=== PATIENT | male | born 1995 | race Caucasian/White ===

== ENCOUNTER 2020-08-10 06:04 | Observation (INO) | payer BC, OTHER ==
[2020-08-10] MEDS ORDERED: ONDANSETRON 4 MG/2 ML VIAL ONE ×3 (06:46→10:11)
[2020-08-10] MEDS ORDERED: NA CHLORIDE 0.9% 1,000 ML ONE (06:46)
[2020-08-10 07:00] LABS: Absolute Lymphocytes (CBC) 0.6 K/uL (0.7-4.9); Basophils % 0.4 % (0-1.3); Hematocrit 45.5 % (39.6-49.0); Lymphocytes % 4.7 % (15.3-44.8); MPV 9.1 fL (7.6-11.3); RBC Red Blood Cell Count 5.12 M/uL (4.33-5.43)
[2020-08-10 07:12] LABS: ALT/SGPT 21 U/L (12-78); AST/SGOT 12 U/L (15-37); Albumin 4.7 g/dL (3.4-5.0); Alkaline Phosphatase 80 U/L (45-117); BUN Blood Urea Nitrogen 11 mg/dL (7-18); Bicarbonate 25 mmol/L (21-32); Bilirubin Direct 0.2 mg/dL (0-0.2); Bilirubin Total 0.9 mg/dL (0.2-1.0); Glucose Level 108 mg/dL (74-106); Lipase 28 U/L (73-393); Potassium 3.9 mmol/L (3.5-5.1); Protein, Total 8.3 g/dL (6.4-8.2); Sodium Level 141 mmol/L (136-145)
--- NOTE | 2020-08-10 08:00 | RAD REPORT ---
EXAM DESCRIPTION: CT - Abdomen Pelvis W Contrast - 08/10/2020 7:41 am CLINICAL HISTORY: Abdominal pain COMPARISON: none. TECHNIQUE: Computed axial tomography of the abdomen pelvis was obtained. 100 cc Isovue-300 was admin istered intravenously. Oral contrast was not requested which limits evaluation of bowel and appendix. All CT scans are performed using dose optimization technique as appropriate and may include automated exposure control or mA/KV adjustment according to patient size. FINDINGS: The liver, spleen, pancreas, adrenal and kidneys appear unremarkable. There is no evidence of diverticulitis. The appendix is borderline enlarged. The appendix is retrocecal No adjacent stranding. Portions of th e appendix contains air. No ascites. No abscess IMPRESSION: Borderline enlargement of the appendix. This probably is a normal finding for the patien t. However, an early appendicitis can also result in this appearance and should be correlated clinica lly.
[2020-08-10 08:22] LABS: Blood Morphology Comment NOT SEEN (NOT SEEN); Platelet Estimate ADEQ
--- NOTE | 2020-08-10 08:53 | ER ---
Nurse's Notes [facility] Name: Shola White Age: 25 yrs Sex: Male : 1995 Arrival Date: 08/10/2020 Time: 06:07 Bed 20 Private MD: Diagnosis: Acute appendicitis Presentation: 08/10 06:26 Chief complaint: Patient states: he has really bad car sickness and started vomiting bb last night approx 1800 when driving from to [place] and has been vomiting ever since, now is having some mild abdominal pain on both sides from the vomiting. Coronavirus screen: At this time, the client does not indicate any symptoms associated with coronavirus-19. Ebola Screen: No symptoms or risks identified at this time. Initial Sepsis Screen: Does the patient meet any 2 criteria? No. Patient's initial sepsis screen is negative. Does the patient have a suspected source of infection? No. Patient's initial sepsis screen is negative. Risk Assessment: Do you want to hurt yourself or someone else? Patient reports no desire to harm self or others. Onset of symptoms was August 09, 2020. 06:26 Method Of Arrival: Ambulatory bb 06:26 Acuity: TEQUILA 3 bb Triage Assessment: 06:28 General: Appears in no apparent distress. slender, Behavior is calm, cooperative. Pain: bb Complains of pain in bilateral flank areas Pain currently is 10 out of 10 on a pain scale. Neuro: Level of Consciousness is awake, alert, obeys commands, Oriented to person, place, time, situation. Cardiovascular: No deficits noted. Respiratory: Respiratory effort is even, unlabored, Respiratory pattern is regular. GI: Abdomen is flat, non-distended, Bowel sounds present X 4 quads. Abd is soft X 4 quads Reports vomiting. Derm: Skin is pink, warm \T\ dry. Musculoskeletal: Circulation, motion, and sensation intact. Historical: - Allergies: : No Known Allergies; bb - Home Meds: : None [Active]; bb - PMHx: : None; bb - PSHx: : None; bb - Immunization history:: Adult Immunizations up to date, Flu vaccine is not up to date. - Social history:: Smoking status: Reported history of juuling and/or vaping. Patient uses street drugs, marijuana, Patient/guardian denies using alcohol. Screenin:30 Abuse screen: Denies threats or abuse. Nutritional screening: No deficits noted. bb Tuberculosis screening: No symptoms or risk factors identified. Fall Risk None identified. Assessment: 06:30 Reassessment: No changes from previously documented assessment. see triage assessment. bb 07:35 General: Appears in no apparent distress. comfortable, well groomed, Behavior is calm, zb cooperative, appropriate for age. Neuro: No deficits noted. Level of Consciousness is awake, alert, obeys commands, Oriented to person, place, time, situation. Cardiovascular: No deficits noted. Capillary refill < 3 seconds in bilateral fingers. Respiratory: No deficits noted. Airway is patent Trachea midline Respiratory effort is even, unlabored, Respiratory pattern is regular. GI: Reports lower abdominal pain. : No deficits noted. No signs and/or symptoms were reported regarding the genitourinary system. EENT: No signs and/or symptoms were reported regarding the EENT system. Derm: Skin is intact, is healthy with good turgor, Skin is pink, warm \T\ dry. Musculoskeletal: No deficits noted. No signs and/or symptoms reported regarding the musculoskeletal system. Circulation, motion, and sensation intact. 07:38 Reassessment: Pt taken to CT. zb 08:18 Reassessment: Patient appears in no apparent distress at this time. Patient and/or ph family updated on plan of care and expected duration. Pain level reassessed. Patient is alert, oriented x 3, equal unlabored respirations, skin warm/dry/pink. 09:10 Reassessment: Patient appears in no apparent distress at this time. Patient and/or zb family updated on plan of care and expected duration. Pain level reassessed. Patient is alert, oriented x 3, equal unlabored respirations, skin warm/dry/pink. c/o of mild headache. lights dimmed for comfort. girlfriend at bedside. 09:58 Reassessment: Pt taken to OR, report given to nurse at bedside. ph Vital Signs: 06:26 BP 128 / 72; Pulse 87; Resp 16 S; Temp 99.4(O); Pulse Ox 98% on R/A; Weight 49.9 kg bb (R); Height 5 ft. 5 in. (165.10 cm) (R); Pain 10/10; 08:18 BP 123 / 69; Pulse 89; Resp 18; Pulse Ox 100% on R/A; ph 09:08 BP 116 / 74; Pulse 85; Resp 16; Pulse Ox 100% on R/A; Pain 6/10; zb 09:58 BP 117 / 76; Pulse 87; Resp 18; Temp 98.7; Pulse Ox 99% on R/A; ph 06:26 Body Mass Index 18.30 (49.90 kg, 165.10 cm) ED Course: 06:07 Patient arrived in ED. cl3 06:21 Bill Luna MD is Attending Physician. tw4 06:28 Triage completed. bb 06:28 Arm band placed on Patient placed in an exam room, on a stretcher, on pulse oximetry. bb Family accompanied patient. 06:30 Patient has correct armband on for positive identification. Placed in gown. Bed in low bb position. Call light in reach. Side rails up X 1. Adult w/ patient. Pulse ox on. NIBP on. Warm blanket given. 06:40 Initial lab(s) drawn, by al, sent to lab. Inserted saline lock: 20 gauge in right bb antecubital area, using aseptic technique. Blood collected. 07:00 Donna Herrera, RN is Primary Nurse. ph 07:40 CT completed. Patient tolerated procedure well. Patient moved to CT via wheelchair. sw Patient moved back from CT. 07:42 CT Abd/Pelvis - IV Contrast Only In Process Unspecified. EDMS 08:50 Attending Physician role handed off by Bill Luna MD rn 08:50 Werner Mccoy MD is Attending Physician. rn 08:52 Michael Carlin MD is Hospitalizing Provider. rn 09:57 No provider procedures requiring assistance completed. Patient admitted, IV remains in ph place. Administered Medications: 06:47 Drug: NS 0.9% 1000 ml Route: IV; Rate: 1 bolus; Site: right antecubital; bb 08:30 Follow up: Response: No adverse reaction; IV Status: Completed infusion; IV Intake: ph 1000ml 06:47 Drug: Zofran (Ondansetron) 4 mg Route: IVP; Site: right antecubital; bb 07:15 Follow up: Response: No adverse reaction; Nausea is decreased ph 09:00 Drug: Zofran (Ondansetron) 4 mg {Note: RASS 0.} Route: IVP; Site: right antecubital; zb 09:30 Follow up: Response: No adverse reaction; Nausea is decreased ph 09:06 Drug: morphine 4 mg {Note: rass- 0.} Route: IVP; Site: right antecubital; zb 09:30 Follow up: Response: No adverse reaction; Pain is decreased; RASS: Alert and Calm (0) ph 09:55 Drug: Mefoxin 1 grams {Note: administered IVP.} Route: IVPB; Infused Over: 30 mins; ph Site: right antecubital; 09:57 Follow up: Response: No adverse reaction; IV Status: Infusion continued upon admission ph 09:56 Drug: Flagyl 500 mg Volume: 100 ml; Route: IVPB; Rate: 200 ml/hr; Infused Over: 30 ph mins; Site: right antecubital; 09:57 Follow up: Response: No adverse reaction; IV Status: Infusion continued upon admission ph Intake: 08:30 IV: 1000ml; Total: 1000ml. ph Outcome: 08:52 Decision to Hospitalize by Provider. rn 09:57 Admitted to OR accompanied by tech, family with patient, via wheelchair, with chart. ph 09:57 Condition: stable 09:57 Instructed on the need for admit. 09:59 Patient left the ED. ph Signatures: Dispatcher [employer] Cora Olivares RN RN bb Nieto, Roman, MD MD rn Hall, Patricia, RN RN ph Warren, Shannon sw Wadley, Terrence, MD MD tw4 Lewis, Charde cl3 Naz Figueroa RN RN zb Corrections: (The following items were deleted from the chart) 09:55 09:55 Mefoxin 1 grams IVPB in right antecubital over 30 mins ph ph
--- NOTE | 2020-08-10 08:53 | EDPHYS ---
Physician Documentation [facility] Name: Shola White Age: 25 yrs Sex: Male : 1995 Arrival Date: 08/10/2020 Time: 06:07 Bed 20 Private MD: ED Physician Werner Mccoy HPI: 08/10 06:36 This 25 yrs old Male presents to ER via Ambulatory with complaints of tw4 Vomiting, Abdominal Pain. 06:36 The patient presents to the emergency department with nausea, vomiting. Onset: The tw4 symptoms/episode began/occurred yesterday. Possible causes: unknown. The symptoms are aggravated by nothing. The symptoms are alleviated by nothing. Associated signs and symptoms: The patient has no apparent associated signs or symptoms. Severity of symptoms: At their worst the symptoms were moderate in the emergency department the symptoms are unchanged. The patient has not experienced similar symptoms in the past. Historical: - Allergies: 06:28 No Known Allergies; bb - Home Meds: 06:28 None [Active]; bb - PMHx: 06:28 None; bb - PSHx: 06:28 None; bb - Immunization history:: Adult Immunizations up to date, Flu vaccine is not up to date. - Social history:: Smoking status: Reported history of juuling and/or vaping. Patient uses street drugs, marijuana, Patient/guardian denies using alcohol. ROS: 06:36 Constitutional: Negative for fever, chills, and weight loss, Eyes: Negative for injury, tw4 pain, redness, and discharge, Cardiovascular: Negative for chest pain, palpitations, and edema, Respiratory: Negative for shortness of breath, cough, wheezing, and pleuritic chest pain, Back: Negative for injury and pain. 06:36 MS/Extremity: Negative for injury and deformity, Skin: Negative for injury, rash, and discoloration. 06:36 Abdomen/GI: Positive for abdominal pain, nausea and vomiting, nausea, vomiting, and diarrhea, nausea, vomiting, Negative for diarrhea, constipation, abdominal cramps, abdominal distension, anorexia, dysphagia, hematemesis, black/tarry stool, rectal pain, rectal bleeding, bowel incontinence. Exam: 06:36 Constitutional: This is a well developed, well nourished patient who is awake, alert, tw4 and in no acute distress. Head/Face: Normocephalic, atraumatic. Chest/axilla: Normal chest wall appearance and motion. Nontender with no deformity. No lesions are appreciated. Cardiovascular: Regular rate and rhythm with a normal S1 and S2. No gallops, murmurs, or rubs. Normal PMI, no JVD. No pulse deficits. Respiratory: Lungs have equal breath sounds bilaterally, clear to auscultation and percussion. No rales, rhonchi or wheezes noted. No increased work of breathing, no retractions or nasal flaring. Abdomen/GI: Soft, non-tender, with normal bowel sounds. No distension or tympany. No guarding or rebound. No evidence of tenderness throughout. Back: No spinal tenderness. No costovertebral tenderness. Full range of motion. MS/ Extremity: Pulses equal, no cyanosis. Neurovascular intact. Full, normal range of motion. Neuro: Awake and alert, GCS 15, oriented to person, place, time, and situation. Cranial nerves II-XII grossly intact. Motor strength 5/5 in all extremities. Sensory grossly intact. Cerebellar exam normal. Normal gait. Vital Signs: 06:26 BP 128 / 72; Pulse 87; Resp 16 S; Temp 99.4(O); Pulse Ox 98% on R/A; Weight 49.9 kg bb (R); Height 5 ft. 5 in. (165.10 cm) (R); Pain 10/10; 08:18 BP 123 / 69; Pulse 89; Resp 18; Pulse Ox 100% on R/A; ph 09:08 BP 116 / 74; Pulse 85; Resp 16; Pulse Ox 100% on R/A; Pain 6/10; zb 09:58 BP 117 / 76; Pulse 87; Resp 18; Temp 98.7; Pulse Ox 99% on R/A; ph 06:26 Body Mass Index 18.30 (49.90 kg, 165.10 cm) bb MDM: 06:36 Patient medically screened. tw4 08:50 Differential diagnosis: Nonspecific abd pain, appendicitis, viral gastroenteritis, rn gastroenteritis, cyclical vomiting syndrome. Data reviewed: vital signs, nurses notes, lab test result(s), radiologic studies, CT scan, and as a result, I will admit patient. Counseling: I had a detailed discussion with the patient and/or guardian regarding: the historical points, exam findings, and any diagnostic results supporting the discharge/admit diagnosis, lab results, radiology results, the need for further work-up and treatment in the hospital. Admission orders: after a detailed discussion of the patient's condition and case, the admit orders are written by me. ED course: Pt with elevated WBC, ct shows dilated appendix, unsure if acute appendicitis or normal variant, but focal tenderness RLQ, chills, and low grade temp, will admit to Dr. Carlin for possible early appendicitis.. 09:32 ED course: Consulted Dr. Carlin, will come and eval patient in ER. . rn 08/10 06:28 Order name: Basic Metabolic Panel; Complete Time: 07:20 tw4 08/10 06:28 Order name: CBC with Diff; Complete Time: 08:48 tw4 08/10 06:28 Order name: Hepatic Function; Complete Time: 07:20 tw4 08/10 06:28 Order name: Lipase; Complete Time: 07:20 tw4 08/10 08:23 Order name: Manual Differential; Complete Time: 08:48 EDMS 08/10 06:28 Order name: IV Saline Lock; Complete Time: 06:47 tw4 08/10 07:20 Order name: CT Abd/Pelvis - IV Contrast Only; Complete Time: 08:02 rn 08/10 06:28 Order name: Labs collected and sent; Complete Time: 06:47 tw4 08/10 09:45 Order name: NPO; Complete Time: 09:52 rn Administered Medications: 06:47 Drug: NS 0.9% 1000 ml Route: IV; Rate: 1 bolus; Site: right antecubital; bb 08:30 Follow up: Response: No adverse reaction; IV Status: Completed infusion; IV Intake: ph 1000ml 06:47 Drug: Zofran (Ondansetron) 4 mg Route: IVP; Site: right antecubital; bb 07:15 Follow up: Response: No adverse reaction; Nausea is decreased ph 09:00 Drug: Zofran (Ondansetron) 4 mg {Note: RASS 0.} Route: IVP; Site: right antecubital; zb 09:30 Follow up: Response: No adverse reaction; Nausea is decreased ph 09:06 Drug: morphine 4 mg {Note: rass- 0.} Route: IVP; Site: right antecubital; zb 09:30 Follow up: Response: No adverse reaction; Pain is decreased; RASS: Alert and Calm (0) ph 09:55 Drug: Mefoxin 1 grams {Note: administered IVP.} Route: IVPB; Infused Over: 30 mins; ph Site: right antecubital; 09:57 Follow up: Response: No adverse reaction; IV Status: Infusion continued upon admission ph 09:56 Drug: Flagyl 500 mg Volume: 100 ml; Route: IVPB; Rate: 200 ml/hr; Infused Over: 30 ph mins; Site: right antecubital; 09:57 Follow up: Response: No adverse reaction; IV Status: Infusion continued upon admission ph Disposition: 08/10/20 08:52 Hospitalization ordered by Michael Carlin for Observation. Preliminary diagnosis is Acute appendicitis. - Bed requested for Telemetry/MedSurg (observation). - Status is Observation. ph - Condition is Stable. - Problem is new. - Symptoms have improved. Signatures: Dispatcher [employer] EDRI Cora Rosales RN RN bb Nieto, Roman, MD MD rn Hall, Patricia, RN RN ph Wadley, Terrence, MD MD tw4 Naz Figueroa RN RN zb Corrections: (The following items were deleted from the chart) 06:35 06:21 Head C Spine MPR Wo Con+CT.RAD.BRZ ordered. EDRI EDMS 09:59 08:52 Hospitalization Ordered by Michael Carlin MD for Observation. Preliminary ph diagnosis is Acute appendicitis. Bed requested for Telemetry/MedSurg (observation). Status is Observation. Condition is Stable. Problem is new. Symptoms have improved. rn
[2020-08-10] MEDS ORDERED: MORPHINE 4 MG/ML SYR ONE (09:09)
[2020-08-10] MEDS ORDERED: METRONIDAZOLE 500mg IVPB 500 MG/100 ML BAG IV ONE (10:03)
[2020-08-10] MEDS ORDERED: propofoL 200 MG/20 ML VIAL IV ONE (10:10)
[2020-08-10] MEDS ORDERED: MIDAZOLAM HCL 2 MG/2 ML INJ ONE (10:10)
[2020-08-10] MEDS ORDERED: FENTANYL CITR 100 MCG/2 ML ONE ×2 (10:10→11:19)
[2020-08-10] MEDS ORDERED: KETOROLAC 30 MG/ML INJ ONE (10:11)
[2020-08-10] MEDS ORDERED: dexAMETHasone 4 MG/ML VIAL ONE (10:11)
[2020-08-10] MEDS ORDERED: LIDOCAINE 2% MPF 5 ML VIAL ONE (10:11)
[2020-08-10] MEDS ORDERED: ROCURONIUM 50 MG/5 ML VIAL IV ONE (10:11)
[2020-08-10] MEDS ORDERED: Ringers Lactate 1,000 ML IV ONE ×2 (10:12→11:31)
--- NOTE | 2020-08-10 10:22 | HP ---
Date of Admission: 08/10/2020 Diagnoses: Acute appendicitis; right lower quadrant pain, intractable; nausea; vomiting. History Of Present Illness: This is the case of a 25-year-old patient, comes with abdominal pain sta rted overnight, mainly going to the right lower quadrant with nausea, vomiting. He came to the ER. It has been few hours in the ER. Pain is worse and a surgical consult was obtained since the patient has increased WBC count and a CAT scan that suggests appendicitis. He denies any dysuria, hematuria , hematochezia, melena. Denies any recent traveling out of the country. Denies any family member si ck at home. Review of Systems: Ten points otherwise unremarkable. Allergies: NONE. Medications: None. Past Surgical History: None. Social History: He has smoked vape occasionally. He does not drink alcohol. Physical Examination: General: The patient is awake, alert. HEENT: Pupils equal, reactive, anicteric. Neck: Supple. Chest: Clear. Abdomen: Right lower quadrant tenderness with Rovsing sign positive. Genitalia: Deferred. Rectal: Deferred. Extremities: Good capillary refill. Neuro: Cranial nerves 2 through 12 grossly within normal limits. Laboratory Data: WBC count 13.2 with a hemoglobin of 15.2 and potassium 3.9. CAT scan of the abdome n and pelvis interpreted by Dr. Mathias as enlargement of appendix. cannot be ruled out. Assessment: It is a 25-year-old patient with leukocytosis, nausea, vomiting, intractable right lower quadrant pain with psoas sign positive and a CAT scan shows an abnormal appendix. The patient fully explained the options of laparoscopic possible open appendectomy with benefits, alternatives, and ri sks including, but not limited to infection, bleeding, damage to adjacent structures, anesthesia comp lication, negative appendix, NE and even . He also understands this may not relieve any symptom s. He might need more than one surgical intervention. The OR was emergently called. CLAY/MARY Voice ID: [id number]
[2020-08-10] MEDS: CEFOXITIN/SWI 1gm 1 GM/10 ML SYR ONE ×2 (10:33→10:47)
--- NOTE | 2020-08-10 11:12 | P.BOP ---
Preoperative diagnosis: RLQ pain, acute appendicitis Postoperative diagnosis: same plus lysis of adhesions. Meckel's diverticulum Primary procedure: Diagnostic laparoscopy, Laparoscopic appendectomy Barrel Bung Remover And Dumper: ADARSH MORA (Suad) Estimated blood loss: <10cc Specimen: appendix Findings: see dictation, acute appendicitis, Meckel's diverticulum Anesthesia: General Complications: None Transferred to: Recovery Room Condition: Good
[2020-08-10] MEDS ORDERED: ETOMIDATE 20 MG/10 ML VIAL IV ONE (11:15)
[2020-08-10] MEDS ORDERED: GLYCOPYRROLATE 0.2 MG/ML SYR ONE (11:19)
[2020-08-10] MEDS ORDERED: NEOSTIGMINE 1 MG/ML -5 ML ONE (11:40)
[2020-08-10] MEDS ORDERED: CEFOXITIN 1 GM in NA CHLORIDE 0.9% 100 ML IVPB SCH (12:00)
[2020-08-10] MEDS: NA CHLORIDE 0.9% 1,000 ML IV SCH ×2 (12:26→21:15)
[2020-08-10] MEDS: ONDANSETRON 4 MG/2 ML VIAL IV PRN (12:30)
[2020-08-10] MEDS: MORPHINE 2 MG/ML SYR IV PRN ×2 (12:31→18:08)
[2020-08-10] MEDS: HYDROCODONE/APAP 5/325 MG TAB PO PRN ×2 (14:40→21:16)
[2020-08-10] MEDS: CEFOXITIN/SWI 1gm 1 GM/10 ML SYR IV SCH ×2 (14:42→18:07)
[2020-08-10 15:07] VITALS: BMI 18.3
[2020-08-10] MEDS ORDERED: INFLUENZA VACCINE (for 3y+) 0.5 ML DOSE IMVAC ONE (16:00)
[2020-08-10 16:19] LABS: Urine Appearance CLEAR; Urine Bilirubin NEGATIVE (NEG); Urine Blood NEGATIVE (NEG); Urine Color YELLOW; Urine Glucose NEGATIVE (NEG); Urine Protein NEGATIVE (NEG); Urine Urobilinogen 0.2 mg/dL (0.2-1.0)
[2020-08-10 16:20] LABS: Urine Microscopic Reflex NO UMIC
[2020-08-11] MEDS: CEFOXITIN/SWI 1gm 1 GM/10 ML SYR IV SCH (00:09)
[2020-08-11] MEDS: MORPHINE 2 MG/ML SYR IV PRN ×4 (00:34→16:38)
[2020-08-11] MEDS: HYDROCODONE/APAP 5/325 MG TAB PO PRN ×4 (02:11→21:09)
[2020-08-11 04:28] LABS: Absolute Lymphocytes (CBC) 1.8 K/uL (0.7-4.9); Basophils % 0.3 % (0-1.3); Hematocrit 35.1 % (39.6-49.0); Lymphocytes % 14.3 % (15.3-44.8); MPV 9.3 fL (7.6-11.3); RBC Red Blood Cell Count 3.94 M/uL (4.33-5.43)
[2020-08-11 04:38] LABS: BUN Blood Urea Nitrogen 5 mg/dL (7-18); Bicarbonate 27 mmol/L (21-32); Glucose Level 99 mg/dL (74-106); Potassium 3.6 mmol/L (3.5-5.1); Sodium Level 144 mmol/L (136-145)
[2020-08-11] MEDS: NA CHLORIDE 0.9% 1,000 ML IV SCH ×3 (06:40→16:38)
--- NOTE | 2020-08-11 07:17 | EKG ---
Test Date: 2020-08-10 Test Time: 10:15:24 Personnel Specialist: Tiana Ferraro MEASUREMENT RESULTS: Intervals: Rate: 67 MO: 134 QRSD: 84 QT: 398 QTc: 420 Scar[place]: P: 74 MO: 134 QRS: 74 T: 61 INTERPRETIVE STATEMENTS: Normal sinus rhythm with sinus arrhythmia Normal ECG No previous ECG available for comparison Electronically Signed On 08-11-20 07:16:11 [employer] TECHNICIAN by Finn Champion
[2020-08-11] MEDS: Levofloxacin 750mg IV 750 MG/150 ML BAG IV SCH (07:53)
[2020-08-11 07:58] VITALS: O2SAT 100
[2020-08-11] MEDS ORDERED: DIPHENHYDRAMINE 25 MG TAB/CAP PO PRN (19:52)
[2020-08-12] MEDS: NA CHLORIDE 0.9% 1,000 ML IV SCH (01:16)
[2020-08-12] MEDS: HYDROCODONE/APAP 5/325 MG TAB PO PRN ×2 (02:29→08:42)
[2020-08-12] MEDS: Levofloxacin 750mg IV 750 MG/150 ML BAG IV SCH (08:43)
[2020-08-12 10:33] VITALS: BP 111/73; TEMP 98.1
[2020-08-12] MEDS: ONDANSETRON 4 MG/2 ML VIAL IV PRN (12:24)
--- NOTE | 2020-08-12 13:17 | P.PN ---
Subjective Date of Service: 08/11/20 Chief Complaint: nausea, abd oain, appendicitis, Meckel diverticulum Subjective: Improving (but not tolerating doet yet) Review of Systems Gastrointestinal: Nausea, Distention Physical Examination - Vital Signs Temperature: 98.1 F Blood Pressure: 111/73 Pulse: 62 Respirations: 18 Pulse Ox (%): 99 - Physical Exam General: Alert, Oriented x3 Neck: Supple Gastrointestinal: Hypoactive Musculoskeletal: No erythema, No tenderness, No warmth Integumentary: No rashes, No breakdown Neurological: Normal speech - Studies Medications List Reviewed: Yes Assessment And Plan - Plan advance diet slowly oob IS cont abx
--- NOTE | 2020-08-12 14:14 | P.DS ---
Admission Date: 08/10/20 Discharge Date: 08/12/20 Disposition: ROUTINE DISCHARGE Discharge Condition: GOOD Reason for Admission: nausea, abd oain, appendicitis, Meckel diverticulum Vital Signs/Physical Exam: Temp Pulse Resp BP Pulse Ox 98.1 F 62 18 111/73 99 08/12/20 13:16 08/12/20 13:16 08/12/20 13:16 08/12/20 13:16 08/12/20 13:16 General: Alert, Oriented x3 HEENT: PERRLA Neck: Supple Respiratory: Normal air movement Gastrointestinal: Soft and benign Musculoskeletal: No clubbing, No swelling, No contractures, No erythema, No tenderness, No warmth Integumentary: No rashes, No breakdown Neurological: Normal speech Laboratory Data at Discharge: WBC 12.9 K/uL (4.3-10.9) H 08/11/20 03:56 Hgb 12.1 g/dL (13.6-17.9) L D 08/11/20 03:56 Hct 35.1 % (39.6-49.0) L D 08/11/20 03:56 Plt Count 184 K/uL (152-406) D 08/11/20 03:56 Sodium 144 mmol/L (136-145) 08/11/20 03:56 Potassium 3.6 mmol/L (3.5-5.1) 08/11/20 03:56 BUN 5 mg/dL (7-18) L 08/11/20 03:56 Creatinine 0.68 mg/dL (0.55-1.3) 08/11/20 03:56 Glucose 99 mg/dL (74-106) 08/11/20 03:56 Total Bilirubin 0.9 mg/dL (0.2-1.0) 08/10/20 06:40 AST 12 U/L (15-37) L 08/10/20 06:40 ALT 21 U/L (12-78) 08/10/20 06:40 Alkaline Phosphatase 80 U/L (45-117) 08/10/20 06:40 Lipase 28 U/L (73-393) L 08/10/20 06:40 Home Medications: Ciprofloxacin HCl [Cipro 500 MG Tablet] 500 mg PO BID #12 tab 08/12/20 Codeine/APAP [Tylenol W/Codeine #3 tab] 1 tab PO Q4HP PRN #30 tab 08/12/20 Promethazine Tab [Phenergan] 12.5 mg PO Q6HP PRN #10 tab 08/12/20 New Medications: Ciprofloxacin HCl [Cipro 500 MG Tablet] 500 mg PO BID #12 tab Promethazine Tab [Phenergan] 12.5 mg PO Q6HP PRN #10 tab PRN Reason: Nausea / Vomiting Codeine/APAP [Tylenol W/Codeine #3 tab] 1 tab PO Q4HP PRN #30 tab PRN Reason: Pain Patient Discharge Instructions: may take a shower with dressing off. Diet: Regular Activity: No lifting more than 10 lbs Followup: Michael Arias MD [Primary Care Provider] - 1-2 Weeks (PCP- call to schedule an appointment) Michael Carlin MD [ACTIVE - CAN ADMIT] - 1-2 Weeks (surgeon-Call to schedule an appointment )
--- NOTE | 2020-08-24 13:21 | OP ---
Date of Procedure: 08/10/2020 Surgeon: Michael Carlin MD Scouring Train Operator Chief: Celia Martinez. Preoperative Diagnosis: Acute appendicitis, right lower quadrant abdominal pain. 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 Procedures: Diagnostic laparoscopy, laparoscopic appendectomy. Estimated Blood Loss: Less than 10 mL. Specimen: Appendix. Findings: The patient has 2 findings; acute appendicitis, but also about a foot from the terminal il eum, the patient has a Meckel diverticulum with adhesions to the anterior abdominal wall. Those adhe sions were removed. The Meckel diverticulum looked like wide into the base and no evidence of cyanos is, no inflammation in that area, at least acute inflammation at that time. Anesthesia: General plus local. Indications For Procedure: This is the case of a 25-year-old patient, comes to us with acute abdomin al pain, diagnosed with acute appendicitis. The benefits, alternatives, and risks of laparoscopic po ssible open appendectomy were fully explained to the patient which include, but not limited to infect ion, bleeding, damage to adjacent structures, anesthesia complication, recurrence, abscess, CT, and e harpal . The patient also understands this may not relieve the symptoms. He might need more than one surgical intervention. He understood, signed a consent. Procedure In Detail: The patient was brought emergently to the operating room and placed in supine p osition. Anesthesia was done without complication. Abdominal area was prepped and draped in usual s terile fashion. Local anesthesia was applied followed by sharp incision of the skin in the infraumbi lical region. The incision was carried down to fascia, which was opened under direct vision. Perito neum was encountered and opened under direct vision. Vicryl #1 was placed inside the fascia. Shaggy trocar was carefully introduced. No bleeding was obtained. I initiated with a diagnostic laparosco py in this patient. I put the cameras in. I do confirm the findings of acute appendicitis, but also the patient has Meckel diverticulum, which has adhesions to the anterior abdominal wall and I cannot rule out this also as part of the pain in the past or as acute. So, once we released the adhesions, we noted the Meckel diverticulum was wide at the base. No evidence of at least any bleeding or any perforation or any inflammation of the ileum at that moment. We have decision to either take care of the emergency and then address this issue or take care of the emergency, which is the appendix and t hen eventually if we see that he has recurrent pain, then we might have to remove that diverticulum. So, we made a decision to look at the right lower quadrant after putting 2 more trocars, 5 mm each o ne of them under direct visualization in the suprapubic and left lower quadrant. This allowed me to see an inflamed appendix. The base of appendix was spared from the inflammation, so we created a win felipe in the base of the appendix, transected that with Endo AMINATA 45 mm 3.5 and mesoappendix with Endo G IA 45 mm 2.5. Further hemostasis was obtained with the help of hemoclips. Also, we also had a lysis of adhesions to be able to mobilize the bowel near the area of the small bowel and for that, we used a LigaSure. After hemostasis was obtained, irrigation was done, no bleeding. We removed the append ix to take a look at the area once again. Also, the area of the lysis of adhesions and also the dive rticulum looked intact with no bleeding. At that moment, I proceeded to remove the trocars under dir ect vision. Deflated pneumoperitoneum. Closed the fascia with #1 Vicryl. Irrigated subcutaneous ti ssue, closed that with 3-0 chromic and skin with javad. Sponge count and instrument counts were co rrect. The patient tolerated the procedure well. The patient was sent to recovery in stable conditi on. Once again, we discussed the case with the family member at bedside right now, but in the future, we might have to address the diverticulum if that becomes symptomatic. CLAY/MARY Voice ID: [id number] Report ID: [id number]
== END 2020-08-12 14:23 | disposition home or self-care (01) ==
LOC: ER 06:04 → ERHOLD 11:23 → 2ND 11:43
PROVIDERS: ADMIT Surgery; ATTEND Surgery
PROC: 0DTJ4ZZ Resection of Appendix, Percutaneous Endoscopic Approach (ICD-10-PCS; principal; 2020-08-10 13:15)
DX: K35.80 Unspecified acute appendicitis (principal); Q43.0 Meckel's diverticulum (displaced) (hypertrophic); F17.290 Nicotine dependence, other tobacco product, uncomplicated; Z20.828 Contact with and (suspected) exposure to other viral communicable diseases
CPT/HCPCS: 44970; 96361; 93005; 85025 ×2; 80048 ×2; 36415; 80076; 88304; 81003; 83690; 74177; 94010 ×2; 96375; 96374; 99285; U0002; Q9967; J2704; J1100; J2250; J3010 ×2; J2270 ×6; J2710; J7120 ×2; J7030 ×6; J2405 ×5; G0378 ×4

== ENCOUNTER 2020-08-14 15:53 | Emergency (ER) | payer BC ==
[2020-08-14 17:23] LABS: Absolute Lymphocytes (CBC) 1.4 K/uL (0.7-4.9); Basophils % 1.3 % (0-1.3); Hematocrit 43.5 % (39.6-49.0); Lymphocytes % 32.4 % (15.3-44.8); MPV 8.6 fL (7.6-11.3); RBC Red Blood Cell Count 4.93 M/uL (4.33-5.43)
[2020-08-14 17:49] LABS: ALT/SGPT 30 U/L (12-78); AST/SGOT 17 U/L (15-37); Albumin 4.4 g/dL (3.4-5.0); Alkaline Phosphatase 68 U/L (45-117); BUN Blood Urea Nitrogen 7 mg/dL (7-18); Bicarbonate 29 mmol/L (21-32); Bilirubin Direct 0.2 mg/dL (0-0.2); Bilirubin Total 0.6 mg/dL (0.2-1.0); Glucose Level 88 mg/dL (74-106); Lipase 90 U/L (73-393); Potassium 3.7 mmol/L (3.5-5.1); Protein, Total 7.7 g/dL (6.4-8.2); Sodium Level 142 mmol/L (136-145)
[2020-08-14] MEDS ORDERED: NA CHLORIDE 0.9% 1,000 ML ONE (17:58)
--- NOTE | 2020-08-14 18:10 | RAD REPORT ---
EXAM DESCRIPTION: CT - Abdomen Pelvis W Contrast - 08/14/2020 5:38 pm CLINICAL HISTORY: Abdominal pain/rectal bleeding COMPARISON: August 10, 2020 TECHNIQUE: Computed axial tomography of the abdomen pelvis was obtained. 100 cc Isovue-300 was admin istered intravenously. Oral contrast was not requested which limits evaluation of bowel. All CT scans are performed using dose optimization technique as appropriate and may include automated exposure control or mA/KV adjustment according to patient size. FINDINGS: Postsurgical changes of an appendectomy. A small to moderate amount of ascites is present within the pelvis. Small amount of pneumoperitoneum The liver, spleen, pancreas, adrenal and kidneys appear unremarkable. There is no evidence of diverticulitis. No bowel obstruction IMPRESSION: Appendectomy with small to moderate amount of free fluid within the pelvis.
--- NOTE | 2020-08-14 18:28 | EDPHYS ---
Physician Documentation [facility] Name: Shola White Age: 25 yrs Sex: Male : 1995 Arrival Date: 08/14/2020 Time: 15:54 Bed 17 Private MD: ED Physician Gm Bedolla HPI: 08/14 16:43 This 25 yrs old Male presents to ER via Ambulatory with complaints of Rectal jmm Bleeding. 16:43 Onset: The symptoms/episode began/occurred today. Modifying factors: The symptoms are jmm alleviated by nothing, The symptoms are aggravated by bowel movement. Associate signs and symptoms: Pertinent positives:. This is a 25 year old male with a history of Meckel diverticulum that presents to the ED with complaints of rectal bleeding beginning today. Patient states after a BM having bright red blood on tissue. Patient is 3 days s/p appendectomy. . Historical: - Allergies: 16:42 No Known Allergies; iw - Home Meds: 16:42 Tylenol #3 Oral [Active]; Promethazine Oral [Active]; antibiotics [Active]; iw - PMHx: 16:42 None; iw - PSHx: 16:42 Appendectomy; iw - Immunization history:: Adult Immunizations not up to date. - Social history:: Smoking status: Reported history of juuling and/or vaping. ROS: 16:43 Constitutional: Negative for fever, chills, and weight loss, Cardiovascular: Negative jmm for chest pain, palpitations, and edema, Respiratory: Negative for shortness of breath, cough, wheezing, and pleuritic chest pain. 16:43 Abdomen/GI: Positive for abdominal pain, rectal bleeding. 16:43 All other systems are negative. Exam: 16:43 Constitutional: This is a well developed, well nourished patient who is awake, alert, jmm and in no acute distress. Head/Face: atraumatic. Eyes: EOMI, no conjunctival erythema appreciated ENT: Moist Mucus Membranes Neck: Trachea midline, Supple Chest/axilla: Normal chest wall appearance and motion. Cardiovascular: Regular rate and rhythm. No edema appreciated Respiratory: Normal respirations, no respiratory distress appreciated Abdomen/GI: Non distended, soft Back: Normal ROM Skin: General appearance color normal MS/ Extremity: Moves all extremities, no obvious deformities appreciated, no edema noted to the lower extremities Neuro: Awake and alert, normal gait Psych: Behavior is normal, Mood is normal, Patient is cooperative and pleasant Vital Signs: 16:41 BP 146 / 94; Pulse 74; Resp 16; Temp 98.3; Pulse Ox 100% on R/A; Weight 49.9 kg; Height iw 5 ft. 5 in. (165.10 cm); 18:30 BP 128 / 88; Pulse 72; Resp 16; Pulse Ox 100% on R/A; hb 16:41 Body Mass Index 18.30 (49.90 kg, 165.10 cm) iw MDM: 16:35 Patient medically screened. [facility] 18:25 Data reviewed: vital signs, nurses notes. Counseling: I had a detailed discussion with [facility] the patient and/or guardian regarding: the historical points, exam findings, and any diagnostic results supporting the discharge/admit diagnosis, radiology results, the need for outpatient follow up, to return to the emergency department if symptoms worsen or persist or if there are any questions or concerns that arise at home. ED course: Labs and imaging studies unremarkable. Patient was given option to stay for observation. Elected to f/u outpatient. Patient and family otherwise given strict return precautions. Patient understood and agrees with the plan of care. . 11 16:42 Order name: Basic Metabolic Panel; Complete Time: 17:51 [facility] 08/14 16:42 Order name: CBC with Diff; Complete Time: 17:40 [facility] 08/14 16:42 Order name: Hepatic Function; Complete Time: 17:51 [facility] 08/14 16:42 Order name: Lipase; Complete Time: 17:51 [facility] 08/14 16:42 Order name: Type And Screen; Complete Time: 17:51 [facility] 08/14 17:51 Order name: ABO/RH no charge; Complete Time: 17:59 [facility] 08/14 16:42 Order name: IV Saline Lock; Complete Time: 17:07 [facility] 08/14 16:42 Order name: Labs collected and sent; Complete Time: 17:07 [facility] 08/14 16:42 Order name: CT Abd/Pelvis - IV Contrast Only; Complete Time: 18:11 [facility] Administered Medications: 17:47 Drug: NS 0.9% 1000 ml Route: IV; Rate: 1 bolus; Site: right antecubital; hb Disposition: 11/07/20 18:28 Discharged to Home. Impression: Gastrointestinal hemorrhage, unspecified. - Condition is Stable. - Discharge Instructions: Gastrointestinal Bleeding. - Medication Reconciliation Form, Thank You Letter, Antibiotic Education, Prescription Opioid Use form. - Follow up: Michael Carlin MD; When: 48 Hours; Reason: Recheck today's complaints, Continuance of care, Re-evaluation by your physician. Addendum: 08/16/2020 08:48 Co-signature as Attending Physician, Gm Bedolla MD I agree with the assessment and c beasley plan of care. Signatures: Dispatcher [employer] EDMS Gm Bedolla MD MD cha Mickail, Joel, PA PA jmm Williams, Irene, RN RN iw Ginger Montaño, RN RN hb Corrections: (The following items were deleted from the chart) 08/14 18:42 18:28 08/14/2020 18:28 Discharged to Home. Impression: Gastrointestinal hemorrhage, hb unspecified. Condition is Stable. Forms are Medication Reconciliation Form, Thank You Letter, Antibiotic Education, Prescription Opioid Use. Follow up: Michael Carlin; When: 48 Hours; Reason: Recheck today's complaints, Continuance of care, Re-evaluation by your physician. josie
--- NOTE | 2020-08-14 18:28 | ER ---
Nurse's Notes [facility] Name: Shola White Age: 25 yrs Sex: Male : 1995 Arrival Date: 08/14/2020 Time: 15:54 Bed 17 Private MD: Diagnosis: Gastrointestinal hemorrhage, unspecified Presentation: 08/14 16:36 Chief complaint: Patient states: pt had appendix removed by Dr. Carlin on Sunday, iw was told he also had Merckel's diverticulum and that if he had any symptoms like rectal bleeding to come back, pt states he had dark red blood when he wiped today. Coronavirus screen: At this time, the client does not indicate any symptoms associated with coronavirus-19. Ebola Screen: Patient negative for fever greater than or equal to 101.5 degrees Fahrenheit, and additional compatible Ebola Virus Disease symptoms Patient denies exposure to infectious person. Patient denies travel to an Ebola-affected area in the 21 days before illness onset. No symptoms or risks identified at this time. Initial Sepsis Screen: Does the patient meet any 2 criteria? No. Patient's initial sepsis screen is negative. Does the patient have a suspected source of infection? No. Patient's initial sepsis screen is negative. Risk Assessment: Do you want to hurt yourself or someone else? Patient reports no desire to harm self or others. Onset of symptoms was August 14, 2020. 16:36 Method Of Arrival: Ambulatory 16:36 Acuity: TEQUILA 3 iw Historical: - Allergies: 16:42 No Known Allergies; iw - Home Meds: 16:42 Tylenol #3 Oral [Active]; Promethazine Oral [Active]; antibiotics [Active]; iw - PMHx: 16:42 None; iw - PSHx: 16:42 Appendectomy; iw - Immunization history:: Adult Immunizations not up to date. - Social history:: Smoking status: Reported history of juuling and/or vaping. Screenin:55 Abuse screen: Denies threats or abuse. Denies injuries from another. Nutritional hb screening: No deficits noted. Tuberculosis screening: No symptoms or risk factors identified. Fall Risk None identified. Assessment: 16:55 General: Appears in no apparent distress. Behavior is calm, cooperative. Pain: Pain hb currently is 4 out of 10 on a pain scale. Neuro: Level of Consciousness is awake, alert, obeys commands, Oriented to person, place, time, situation. Cardiovascular: Patient's skin is warm and dry. Respiratory: Respiratory effort is even, unlabored, Respiratory pattern is regular, symmetrical. GI: Reports lower abdominal pain, bloody stool. : No signs and/or symptoms were reported regarding the genitourinary system. EENT: No signs and/or symptoms were reported regarding the EENT system. Derm: Skin is pink, warm \T\ dry. Musculoskeletal: No signs and/or symptoms reported regarding the musculoskeletal system. 17:48 Reassessment: Patient appears in no apparent distress at this time. Patient and/or hb family updated on plan of care and expected duration. Pain level reassessed. Patient is alert, oriented x 3, equal unlabored respirations, skin warm/dry/pink. 18:32 Reassessment: Patient appears in no apparent distress at this time. Patient and/or hb family updated on plan of care and expected duration. Pain level reassessed. Patient is alert, oriented x 3, equal unlabored respirations, skin warm/dry/pink. Vital Signs: 16:41 BP 146 / 94; Pulse 74; Resp 16; Temp 98.3; Pulse Ox 100% on R/A; Weight 49.9 kg; Height iw 5 ft. 5 in. (165.10 cm); 18:30 BP 128 / 88; Pulse 72; Resp 16; Pulse Ox 100% on R/A; hb 16:41 Body Mass Index 18.30 (49.90 kg, 165.10 cm) iw ED Course: 15:54 Patient arrived in ED. ds1 16:29 Demetrio Hull PA is PHCP. jmm 16:29 Gm Bedolla MD is Attending Physician. jmm 16:40 Triage completed. iw 16:42 Arm band placed on. iw 16:55 Patient has correct armband on for positive identification. Bed in low position. Call light in reach. Side rails up X 1. 17:03 Initial lab(s) drawn, by me, sent to lab. T\T\S collected, blood band applied to patient. dh3 Inserted saline lock: 20 gauge in right antecubital area, using aseptic technique. Blood collected. 17:10 Ginger Montaño, RN is Primary Nurse. hb 17:39 CT Abd/Pelvis - IV Contrast Only In Process Unspecified. EDMS 18:27 Michael Carlin MD is Referral Physician. [facility] 18:42 No provider procedures requiring assistance completed. IV discontinued, intact, hb bleeding controlled, No redness/swelling at site. Administered Medications: 17:47 Drug: NS 0.9% 1000 ml Route: IV; Rate: 1 bolus; Site: right antecubital; hb Outcome: 18:28 Discharge ordered by . [facility] 18:42 Discharged to home ambulatory. hb 18:42 Condition: stable 18:42 Discharge instructions given to patient, Instructed on discharge instructions, follow up and referral plans. medication usage, Demonstrated understanding of instructions, follow-up care, medications. 18:42 Patient left the ED. hb Signatures: Dispatcher [employer] EDMS Demetrio Hull PA PA [facility] Vivian Jacob ds1 Carol Jin, RN RN Ginger Montaño RN RN Richa Cabezas 3
[2020-08-14 19:29] VITALS: TEMP 98.3; O2SAT 100
[2020-08-14 19:30] VITALS: BP 128/88
== END 2020-08-14 18:42 | disposition home or self-care (01) ==
LOC: ER 15:53
DX: K92.2 Gastrointestinal hemorrhage, unspecified (principal); Z98.890 Other specified postprocedural states; Z87.891 Personal history of nicotine dependence
CPT/HCPCS: 85025; 80048; 36415; 86900; 86850; 86901; 80076; 83690; 74177; 99284; Q9967; J7030

== ENCOUNTER 2020-08-17 00:01 | Emergency (ER) | payer BC ==
[2020-08-17] MEDS ORDERED: NA CHLORIDE 0.9% 1,000 ML ONE (00:35)
[2020-08-17] MEDS ORDERED: KETOROLAC 30 MG/ML INJ ONE (00:35)
[2020-08-17 00:58] LABS: Absolute Lymphocytes (CBC) 1.7 K/uL (0.7-4.9); Basophils % 1.2 % (0-1.3); Lymphocytes % 26.7 % (15.3-44.8); MPV 9.2 fL (7.6-11.3); RBC Red Blood Cell Count 4.89 M/uL (4.33-5.43)
[2020-08-17 01:00] LABS: Protime INR 1.1
[2020-08-17 01:14] LABS: ALT/SGPT 23 U/L (12-78); AST/SGOT 12 U/L (15-37); Albumin 4.2 g/dL (3.4-5.0); Alkaline Phosphatase 64 U/L (45-117); BUN Blood Urea Nitrogen 8 mg/dL (7-18); Bicarbonate 25 mmol/L (21-32); Bilirubin Direct 0.1 mg/dL (0-0.2); Bilirubin Total 0.4 mg/dL (0.2-1.0); Glucose Level 96 mg/dL (74-106); Magnesium 2.2 mg/dL (1.8-2.4); Potassium 3.3 mmol/L (3.5-5.1); Protein, Total 7.5 g/dL (6.4-8.2); Sodium Level 144 mmol/L (136-145); Troponin (Emerg Dept Use Only) < 0.02 ng/mL (0.0-0.045)
--- NOTE | 2020-08-17 01:23 | ER ---
Nurse's Notes [facility] Name: Shola White Age: 25 yrs Sex: Male : 1995 Arrival Date: 08/17/2020 Time: 00:02 Bed 8 Private MD: Diagnosis: Chest pain. S/P appendectomy Presentation: 08/17 00:07 Chief complaint: Patient states: Left sided chest pain and shortness of breath, also sg complaining of a headache with dizziness that began today, worsening this evening. pt reports having his appendix removed, states that the chest pain occurred before the procedure, and cardiac tests were done that resulted normal and the surgery continued. Coronavirus screen: Client denies travel out of the [place] in the last 14 days. At this time, the client does not indicate any symptoms associated with coronavirus-19. Ebola Screen: Patient negative for fever greater than or equal to 101.5 degrees Fahrenheit, and additional compatible Ebola Virus Disease symptoms Patient denies exposure to infectious person. Patient denies travel to an Ebola-affected area in the 21 days before illness onset. No symptoms or risks identified at this time. Initial Sepsis Screen: Does the patient meet any 2 criteria? No. Patient's initial sepsis screen is negative. Does the patient have a suspected source of infection? No. Patient's initial sepsis screen is negative. Risk Assessment: Do you want to hurt yourself or someone else? Patient reports no desire to harm self or others. Onset of symptoms was August 10, 2020. Care prior to arrival: None. Transition of care: patient was not received from another setting of care. 00:07 Method Of Arrival: Ambulatory sg 00:07 Acuity: TEQUILA 3 sg Historical: - Allergies: 00:11 No Known Allergies; sg - PMHx: 00:11 Meckel's Diverticulum; sg - PSHx: 00:11 Appendectomy; sg - Immunization history:: Adult Immunizations up to date. - Social history:: Smoking status: Reported history of juuling and/or vaping. Screenin:29 Abuse screen: Denies threats or abuse. Denies injuries from another. Nutritional mg2 screening: No deficits noted. Tuberculosis screening: No symptoms or risk factors identified. Fall Risk IV access (20 points). Assessment: 00:28 General: Appears in no apparent distress. comfortable, Behavior is calm, cooperative. mg2 Pain: Complains of pain in chest Pain radiates to left arm Pain began gradually, 1 day ago. Neuro: Level of Consciousness is awake, alert, obeys commands, Oriented to person, place, time, situation. Cardiovascular: Capillary refill < 3 seconds Patient's skin is warm and dry. Rhythm is sinus rhythm. Respiratory: Airway is patent Respiratory effort is even, unlabored, Respiratory pattern is regular, symmetrical. GI: No signs and/or symptoms were reported involving the gastrointestinal system. post op wound- appendectomy 6 days ago. : No signs and/or symptoms were reported regarding the genitourinary system. EENT: No signs and/or symptoms were reported regarding the EENT system. Derm: post op wound in the abdomen, no infection noted. Musculoskeletal: Circulation, motion, and sensation intact. Capillary refill < 3 seconds. 01:30 Reassessment: Patient and/or family updated on plan of care and expected duration. Pain ea level reassessed. Patient is alert, oriented x 3, equal unlabored respirations, skin warm/dry/pink. Discharge instruction given to patient, verbalized the understanding of instruction. Pt left ED ambulatory accompanied by significant other. Vital Signs: 00:27 BP 124 / 79; Pulse 82; Resp 18; Temp 97.9; Pulse Ox 98% on R/A; mg2 01:15 BP 106 / 56; Pulse 78; Resp 18; Pulse Ox 98% on R/A; ea ED Course: 00:02 Patient arrived in ED. am2 00:03 Gm Huang PA is PHCP. cp 00:03 Vega Ravi MD is Attending Physician. cp 00:07 Arm band placed on. sg 00:09 Triage completed. sg 00:14 Antoine Gastelum, ELIZA is Primary Nurse. mg2 00:20 Inserted saline lock: 20 gauge in right antecubital area, using aseptic technique. mg2 Blood collected. 00:29 No provider procedures requiring assistance completed. Patient maintains SpO2 mg2 saturation greater than 95% on room air. 00:30 Patient has correct armband on for positive identification. Placed in gown. Bed in low mg2 position. radiation monitor on. Pulse ox on. NIBP on. Door closed. Warm blanket given. 00:40 XRAY Chest (1 view) In Process Unspecified. EDMS 01:30 IV discontinued, intact, bleeding controlled, No redness/swelling at site. Pressure ea dressing applied. Administered Medications: 00:27 Drug: NS 0.9% 1000 ml Route: IV; Rate: 1 bolus; Site: right antecubital; mg2 01:28 Follow up: Response: No adverse reaction; IV Status: Completed infusion ea 00:27 Drug: TORadol - Ketorolac 15 mg Route: IVP; Site: right antecubital; mg2 01:21 Follow up: Response: No adverse reaction ea 01:21 Drug: K-Dur 20 mEq Route: PO; ea 01:33 Follow up: Response: Medication administered at discharge. ea Outcome: 01:23 Discharge ordered by . pkaidee 01:31 Discharged to home ambulatory, with family. ea 01:31 Condition: stable 01:31 Discharge instructions given to patient, Instructed on discharge instructions, follow up and referral plans. Demonstrated understanding of instructions, follow-up care. 01:32 Patient left the ED. ea Signatures: Dispatcher [employer] EDMS Howard Rose RN Vega Jin MD MD pkl Gm Huang, PA Lilian Barnett cp, Elena RN Antoine Flaherty ea RN RN mg2
--- NOTE | 2020-08-17 01:24 | EDPHYS ---
Physician Documentation [facility] Name: Shola White Age: 25 yrs Sex: Male : 1995 Arrival Date: 08/17/2020 Time: 00:02 Bed 8 Private MD: ED Physician Vega Ravi HPI: 08/17 00:13 This 25 yrs old Male presents to ER via Ambulatory with complaints of Chest cp Pain, Shortness Of Breath, Headache, Dizziness. 00:14 The patient or guardian reports chest pain that is located primarily in the anterior cp chest wall, left. The pain radiates to the left arm, left back. Associated signs and symptoms: Pertinent positives: shortness of breath, Pertinent negatives: abdominal pain, cough, lower extremity pain, lower extremity swelling, syncope. The chest pain is described as sharp. Duration: The patient or guardian reports a single episode, that is still ongoing. Historical: - Allergies: 00:11 No Known Allergies; sg - PMHx: 00:11 Meckel's Diverticulum; sg - PSHx: 00:11 Appendectomy; sg - Immunization history:: Adult Immunizations up to date. - Social history:: Smoking status: Reported history of juuling and/or vaping. ROS: 00:15 Eyes: Negative for injury, pain, redness, and discharge. cp 00:15 Constitutional: Negative for body aches, chills, fever, poor PO intake. 00:15 Cardiovascular: Positive for chest pain, Negative for edema, palpitations. 00:15 Respiratory: Positive for shortness of breath, Negative for cough, wheezing. 00:15 Abdomen/GI: Negative for abdominal pain, nausea, vomiting, and diarrhea, constipation. 00:15 Neuro: Positive for dizziness, headache, Negative for altered mental status, syncope, cp weakness. 00:15 Skin: Negative for rash. cp 00:15 All other systems are negative. cp Exam: 00:16 Head/Face: Normocephalic, atraumatic. cp 00:16 Constitutional: The patient appears in no acute distress, alert, awake, non-diaphoretic, non-toxic, well developed, well nourished. 00:16 Eyes: Periorbital structures: appear normal, Conjunctiva: normal, no exudate, no injection, Lids and lashes: appear normal, bilaterally. 00:16 Chest/axilla: Inspection: normal, Palpation: is normal, no crepitus, no tenderness. 00:16 Cardiovascular: Rate: normal, Rhythm: regular, Heart sounds: murmur, not appreciated, Edema: is not appreciated, JVD: is not appreciated. 00:16 ECG was reviewed by the Attending Physician. 00:16 Respiratory: the patient does not display signs of respiratory distress, Respirations: normal, no use of accessory muscles, no retractions, labored breathing, is not present, Breath sounds: are clear throughout, no decreased breath sounds, no stridor, no wheezing. 00:26 Abdomen/GI: Inspection: distension, is not seen, Bowel sounds: active, all quadrants, cp Palpation: abdomen is soft and non-tender, in all quadrants. 00:26 Back: pain, that is mild, of the left scapular area, ROM is normal. 00:26 Skin: cellulitis, is not appreciated. 00:26 Neuro: Orientation: to person, place \T\ time. Mentation: is normal, Motor: moves all fours, strength is normal. Vital Signs: 00:27 BP 124 / 79; Pulse 82; Resp 18; Temp 97.9; Pulse Ox 98% on R/A; mg2 01:15 BP 106 / 56; Pulse 78; Resp 18; Pulse Ox 98% on R/A; ea MDM: 00:07 Patient medically screened. cp 01:00 Transition of care: After a detail discussion of the patient's case, care is cp transferred to Vega Ravi MD. 01:19 Data reviewed: vital signs, nurses notes, lab test result(s), EKG, radiologic studies, pkl plain films. ED course: Patient feeling better. Discussed lab, EKG and X' rays results with patient. Advised to follow up with PCP in 1 to 2 days. Patient understood instructions. 08/17 00:11 Order name: Basic Metabolic Panel; Complete Time: : cp 08/17 00:11 Order name: CBC with Diff; Complete Time: : cp 08/17 00:11 Order name: LFT's; Complete Time: : cp 08/17 00:11 Order name: Magnesium; Complete Time: : cp 08/17 00:11 Order name: Troponin (emerg Dept Use Only); Complete Time: : cp 08/17 00:11 Order name: XRAY Chest (1 view) cp 08/17 00:11 Order name: UDS cp 08/17 00:12 Order name: D-Dimer; Complete Time: 01:10 cp 08/17 00:52 Order name: Protime (+INR); Complete Time: 01:10 EDMS 08/17 01:14 Order name: Urine Dipstick--Ancillary (enter results) tt3 08/17 00:11 Order name: EKG; Complete Time: 00:13 cp 08/17 00:11 Order name: Cardiac monitoring; Complete Time: 00:27 cp 08/17 00:11 Order name: EKG - Nurse/Tech; Complete Time: 00: cp 08/17 00:11 Order name: IV Saline Lock; Complete Time: 00: cp 08/17 00:11 Order name: Labs collected and sent; Complete Time: 00:27 cp 08/17 00:11 Order name: O2 Per Protocol; Complete Time: 00: 08/17 00:11 Order name: O2 Sat Monitoring; Complete Time: 00:27 cp EC:16 Rate is 88 beats/min. Rhythm is regular. NM interval is normal. QRS interval is normal. cp QT interval is normal. T waves are Flattened in lead aVL. Interpreted by me. Reviewed by me. Administered Medications: 00:27 Drug: NS 0.9% 1000 ml Route: IV; Rate: 1 bolus; Site: right antecubital; mg2 01:28 Follow up: Response: No adverse reaction; IV Status: Completed infusion ea 00:27 Drug: TORadol - Ketorolac 15 mg Route: IVP; Site: right antecubital; mg2 01:21 Follow up: Response: No adverse reaction ea 01:21 Drug: K-Dur 20 mEq Route: PO; ea 01:33 Follow up: Response: Medication administered at discharge. ea Disposition: 01:19 Co-signature as Attending Physician, Vega Ravi MD. pkl Disposition: 08/17/20 01:23 Discharged to Home. Impression: Chest pain. S/P appendectomy. - Condition is Stable. - Medication Reconciliation Form, Thank You Letter, Antibiotic Education, Prescription Opioid Use form. - Follow up: Private Physician; When: 1 - 2 days; Reason: Re-evaluation by your physician. - Problem is new. - Symptoms have improved. Signatures: Dispatcher [employer] EDMS Howard Rose, RN RN Vega Gardner MD MD pkl Gm Huang PA PA Yasemin Singh RN RN ea Gardose, Michele RN RN mg2 Corrections: (The following items were deleted from the chart) 00:52 00:12 PROTIME (+INR)+[id number].BRZ ordered. [facility] EDAL 01:32 01:23 08/17/2020 01:23 Discharged to Home. Impression: Chest pain. S/P appendectomy. ea Condition is Stable. Forms are Medication Reconciliation Form, Thank You Letter, Antibiotic Education, Prescription Opioid Use. Follow up: Private Physician; When: 1 - 2 days; Reason: Re-evaluation by your physician. Problem is new. Symptoms have improved. pkl 19:07 00:15 All other systems are negative, cp cp
[2020-08-17] MEDS ORDERED: POTASSIUM CL SA 10 MEQ TAB PO ONE (01:32)
[2020-08-17 01:33] LABS: Urine Blood NEGATIVE (NEG); Urine Glucose NEGATIVE (NEG); Urine Protein NEGATIVE (NEG); Urine Specific Gravity 1.015 (1.005-1.030); Urine pH 8.5 (5.0-7.0)
[2020-08-17 01:55] LABS: Barbiturates NEGATIVE (NEGATIVE); Benzodiazepines NEGATIVE (NEGATIVE); Cocaine NEGATIVE (NEGATIVE); METHAMPHETAM NEGATIVE (NEGATIVE); Methadone NEGATIVE (NEGATIVE); Opiates NEGATIVE (NEGATIVE); Phencyclidine NEGATIVE (NEGATIVE); THC Cannibis POSITIVE (NEGATIVE)
--- NOTE | 2020-08-17 08:29 | RAD REPORT ---
EXAM DESCRIPTION: RAD - Chest Single View - 08/17/2020 12:40 am CLINICAL HISTORY: CHEST PAIN Chest pain. COMPARISON: No comparisons FINDINGS: Portable technique limits examination quality. The lungs are grossly clear. The heart is normal in size. No displaced fractures. IMPRESSION: No acute intrathoracic process suspected.
[2020-08-17 08:54] VITALS: BP 124/79; TEMP 97.9; O2SAT 98
--- NOTE | 2020-08-17 12:04 | EKG ---
Test Date: 2020-08-17 Test Time: 00:08:58 Sign Maintenance: MEASUREMENT RESULTS: Intervals: Rate: 88 WI: 118 QRSD: 80 QT: 348 QTc: 421 [place]: P: 46 WI: 118 QRS: 72 T: 62 INTERPRETIVE STATEMENTS: Normal sinus rhythm with sinus arrhythmia Normal ECG Compared to ECG 08/10/2020 10:15:24 No significant changes Electronically Signed On 08-17-20 12:03:03 MANAGER AMBULATORY by Finn Champion
== END 2020-08-17 01:32 | disposition home or self-care (01) ==
LOC: ER 00:01
DX: R07.89 Other chest pain (principal); Z98.890 Other specified postprocedural states; Z87.891 Personal history of nicotine dependence
CPT/HCPCS: 96361; 93005; 85025; 80048; 36415; 83735; 85610; 85379; 80076; 80307 ×8; 81003; 84484; 71045; 96374; 99285; J7030

== ENCOUNTER 2020-08-28 16:36 | Emergency (ER) | payer BC ==
--- NOTE | 2020-08-28 18:50 | EDPHYS ---
Physician Documentation [facility] Name: Shola White Age: 25 yrs Sex: Male : 1995 Arrival Date: 08/28/2020 Time: 16:37 Bed 20 Private MD: ED Physician Abner Goodrich HPI: 08/28 19:13 This 25 yrs old Male presents to ER via Ambulatory with complaints of kdr Shortness Of Breath. 19:13 The patient has shortness of breath at rest, with light activity. Onset: The kdr symptoms/episode began/occurred gradually, 3 day(s) ago. Duration: The symptoms are continuous, and are steadily getting worse. The patient's shortness of breath is aggravated by coughing, exertion, light activity. Associated signs and symptoms: Pertinent positives: Pertinent negatives: chest pain, non-productive cough, productive cough, diaphoresis, dizziness, fever, hemoptysis, loss of consciousness, nausea, numbness in extremities, visual changes, vomiting. Severity of symptoms: At their worst the symptoms were mild in the emergency department the symptoms are unchanged. The patient has not experienced similar symptoms in the past. The patient has not recently seen a physician. Historical: - Allergies: 16:44 No Known Allergies; ll1 - Home Meds: 18:12 antibiotics [Active]; Promethazine Oral [Active]; Tylenol #3 Oral [Active]; ae4 - PMHx: 16:44 Meckel's Diverticulum; ll1 - PSHx: 16:44 Appendectomy; ll1 - Immunization history:: Flu vaccine is up to date. - Social history:: Smoking status: Reported history of juuling and/or vaping. ROS: 19:13 Constitutional: Negative for fever, chills, and weight loss, Eyes: Negative for injury, kdr pain, redness, and discharge, Neck: Negative for injury, pain, and swelling, Cardiovascular: Negative for chest pain, palpitations, and edema, Abdomen/GI: Negative for abdominal pain, nausea, vomiting, diarrhea, and constipation, Back: Negative for injury and pain, MS/Extremity: Negative for injury and deformity, Skin: Negative for injury, rash, and discoloration, Neuro: Negative for headache, weakness, numbness, tingling, and seizure activity. 19:13 Respiratory: Positive for dyspnea on exertion, shortness of breath, Negative for cough, dyspnea on exertion, hemoptysis, orthopnea, pleurisy, sputum production, wheezing. Exam: 19:13 Constitutional: This is a well developed, well nourished patient who is awake, alert, kdr and in no acute distress. Head/Face: Normocephalic, atraumatic. Eyes: Pupils equal round and reactive to light, extra-ocular motions intact. Lids and lashes normal. Conjunctiva and sclera are non-icteric and not injected. Cornea within normal limits. Periorbital areas with no swelling, redness, or edema. Neck: Trachea midline, no thyromegaly or masses palpated, and no cervical lymphadenopathy. Supple, full range of motion without nuchal rigidity, or vertebral point tenderness. No Meningismus. Chest/axilla: Normal chest wall appearance and motion. Nontender with no deformity. No lesions are appreciated. Cardiovascular: Regular rate and rhythm with a normal S1 and S2. No gallops, murmurs, or rubs. Normal PMI, no JVD. No pulse deficits. Respiratory: Lungs have equal breath sounds bilaterally, clear to auscultation and percussion. No rales, rhonchi or wheezes noted. No increased work of breathing, no retractions or nasal flaring. Abdomen/GI: Soft, non-tender, with normal bowel sounds. No distension or tympany. No guarding or rebound. No evidence of tenderness throughout. Back: No spinal tenderness. No costovertebral tenderness. Full range of motion. Skin: Warm, dry with normal turgor. Normal color with no rashes, no lesions, and no evidence of cellulitis. MS/ Extremity: Pulses equal, no cyanosis. Neurovascular intact. Full, normal range of motion. Neuro: Awake and alert, GCS 15, oriented to person, place, time, and situation. Cranial nerves II-XII grossly intact. Motor strength 5/5 in all extremities. Sensory grossly intact. Cerebellar exam normal. Normal gait. Psych: Awake, alert, with orientation to person, place and time. Behavior, mood, and affect are within normal limits. Vital Signs: 16:42 BP 137 / 91; Pulse 107; Resp 17; Temp 98.8; Pulse Ox 100% ; Weight 47.63 kg; Height 5 ll1 ft. 6 in. (167.64 cm); Pain 0/10; 19:00 BP 114 / 70; Pulse 73; Resp 16; Temp 98.0(O); Pulse Ox 98% on R/A; jb4 16:42 Body Mass Index 16.95 (47.63 kg, 167.64 cm) ll1 MDM: 18:50 Patient medically screened. kdr 19:13 Data reviewed: vital signs, nurses notes, lab test result(s), radiologic studies. kdr Counseling: I had a detailed discussion with the patient and/or guardian regarding: the historical points, exam findings, and any diagnostic results supporting the discharge/admit diagnosis, lab results, radiology results, the need for outpatient follow up. 08/28 17:34 Order name: COVID-19 [facility] 08/28 17:34 Order name: Flu; Complete Time: 18:49 [facility] 08/28 17:34 Order name: CXR XRAY [facility] 08/28 17:34 Order name: Strep; Complete Time: 18:49 [facility] 08/28 17:34 Order name: Document PUI#; Complete Time: 17:51 [facility] 08/28 18:14 Order name: Throat Culture [facility] 08/28 17:34 Order name: Droplet/Contact Precautions; Complete Time: 17:51 kdr 08/28 17:34 Order name: Labs collected and sent; Complete Time: 17:51 kdr 08/28 17:34 Order name: Notify Health Dept [id number]/ ; Complete Time: 17:51 kdr 08/28 17:34 Order name: O2 Per Protocol; Complete Time: 17:51 kdr Administered Medications: No medications were administered Disposition: 08/28/20 18:50 Discharged to Home. Impression: Dyspnea. - Condition is Stable. - Discharge Instructions: Shortness of Breath, [id number]. - Prescriptions for Albuterol Sulfate 90 mcg/actuation - inhale 1-2 puff by INHALATION route every 4-6 hours; 1 Inhaler. - Medication Reconciliation Form, Thank You Letter form. - Follow up: Private Physician; When: 2 - 3 days; Reason: If symptoms return, Further diagnostic work-up, Recheck today's complaints, Continuance of care, Re-evaluation by your physician. - Problem is new. - Symptoms are unchanged. Signatures: Dispatcher [employer] EDID Abner Goodrich MD MD kdr Joo Cameron RN RN jb4 Kj Greer, RN RN ae4 Mei De La Fuente, RN RN ll1 Corrections: (The following items were deleted from the chart) 19:19 18:50 08/28/2020 18:50 Discharged to Home. Impression: Dyspnea. Condition is Stable. jb4 Forms are Medication Reconciliation Form, Thank You Letter, Antibiotic Education, Prescription Opioid Use. Follow up: Private Physician; When: 2 - 3 days; Reason: If symptoms return, Further diagnostic work-up, Recheck today's complaints, Continuance of care, Re-evaluation by your physician. Problem is new. Symptoms are unchanged. kdr
--- NOTE | 2020-08-28 18:50 | ER ---
Nurse's Notes [facility] Name: Shola White Age: 25 yrs Sex: Male : 1995 Arrival Date: 08/28/2020 Time: 16:37 Bed 20 Private MD: Diagnosis: Dyspnea Presentation: 08/28 16:42 Chief complaint: Patient states: SOB noticed for 3 days. Slight cough. No fever. + sore ll1 throat and fatigue. Coronavirus screen: Client denies travel out of the [place] in the last 14 days. difficulty breathing, fatigue, shortness of breath, sore throat, Client presents with at least one sign or symptom that may indicate coronavirus-19. Standard/surgical mask placed on the client. Ebola Screen: Patient denies travel to an Ebola-affected area in the 21 days before illness onset. Initial Sepsis Screen: Does the patient meet any 2 criteria? HR > 90 bpm. No. Patient's initial sepsis screen is negative. Does the patient have a suspected source of infection? Yes: Productive cough/pneumonia. Risk Assessment: Do you want to hurt yourself or someone else? Patient reports no desire to harm self or others. Onset of symptoms was August 26, 2020. 16:42 Method Of Arrival: Ambulatory ll1 16:42 Acuity: TEQUILA 3 ll1 Triage Assessment: 18:10 General: Appears in no apparent distress. comfortable. Respiratory: the patient has ae4 mild shortness of breath. Historical: - Allergies: 16:44 No Known Allergies; ll1 - Home Meds: 18:12 antibiotics [Active]; Promethazine Oral [Active]; Tylenol #3 Oral [Active]; ae4 - PMHx: 16:44 Meckel's Diverticulum; ll1 - PSHx: 16:44 Appendectomy; ll1 - Immunization history:: Flu vaccine is up to date. - Social history:: Smoking status: Reported history of juuling and/or vaping. Screenin:10 Abuse screen: Denies threats or abuse. Nutritional screening: No deficits noted. ae4 Tuberculosis screening: No symptoms or risk factors identified. Fall Risk None identified. Assessment: 18:08 General: Appears in no apparent distress. comfortable, slender, Behavior is calm, ae4 cooperative. Pain: Denies pain. Neuro: Level of Consciousness is awake, alert, obeys commands, Oriented to person, place, time, situation, Appropriate for age. Cardiovascular: Heart tones S1 S2 Rhythm is regular. Respiratory: Airway is patent Respiratory effort is even, unlabored, relaxed, Respiratory pattern is regular, Breath sounds are clear bilaterally. Respiratory: Reports shortness of breath at rest on exertion. GI: No signs and/or symptoms were reported involving the gastrointestinal system. Patient currently denies abdominal pain, diarrhea, nausea, vomiting. : No signs and/or symptoms were reported regarding the genitourinary system. EENT: Derm: Skin is dry, Skin temperature is warm. Musculoskeletal: No signs and/or symptoms reported regarding the musculoskeletal system. 19:04 Reassessment: Patient appears in no apparent distress at this time. Patient and/or jb4 family updated on plan of care and expected duration. Pain level reassessed. Patient is alert, oriented x 3, equal unlabored respirations, skin warm/dry/pink. 19:20 Reassessment: Patient appears in no apparent distress at this time. Patient and/or jb4 family updated on plan of care and expected duration. Pain level reassessed. Patient is alert, oriented x 3, equal unlabored respirations, skin warm/dry/pink. Vital Signs: 16:42 BP 137 / 91; Pulse 107; Resp 17; Temp 98.8; Pulse Ox 100% ; Weight 47.63 kg; Height 5 ll1 ft. 6 in. (167.64 cm); Pain 0/10; 19:00 BP 114 / 70; Pulse 73; Resp 16; Temp 98.0(O); Pulse Ox 98% on R/A; jb4 16:42 Body Mass Index 16.95 (47.63 kg, 167.64 cm) ll1 ED Course: 16:37 Patient arrived in ED. ds1 16:43 Triage completed. ll1 16:44 Arm band placed on. ll1 17:18 Abner Goodrich MD is Attending Physician. kdr 17:26 Kj Greer RN is Primary Nurse. ae4 17:45 COVID swab sent to lab. Flu and/or RSV swab sent to lab. Strep swab sent to lab. jp3 18:10 Placed in gown. Bed in low position. Call light in reach. Side rails up X 1. Adult w/ ae4 patient. Pulse ox on. 18:14 Throat Culture Sent. sv 18:26 CXR XRAY In Process Unspecified. EDMS 19:19 No provider procedures requiring assistance completed. Patient did not have IV access jb4 during this emergency room visit. Administered Medications: No medications were administered Outcome: 18:50 Discharge ordered by . kdr 19:19 Patient left the ED. jb4 19:19 Discharged to home ambulatory. jb4 19:19 Condition: stable 19:19 Discharge instructions given to patient, Instructed on discharge instructions, follow up and referral plans. Demonstrated understanding of instructions, follow-up care, medications, Prescriptions given X 1. Addendum: 08/31/2020 16:50 Addendum: COVID-19 Result: Negative result given to RN to notify pt. Notified pt of i w negative COVID 19 swab results. Pt advised that even with a negative test result they should remain in isolation until symptom free for 3 days without medication. Pt also advised to return to the ED for worsening symptoms. Signatures: Dispatcher [employer] EDMS Jenifer Jaramillo RN RN sv Abner Goodrich MD MD kdr Sanford, Demi ds1 Carol Jin RN RN iw Joo Cameron RN RN jb4 Shola Aponte jp3 Kj Greer RN RN ae4 Mei De La Fuente, RN RN ll1 Corrections: (The following items were deleted from the chart) 08/28 19:23 19:20 No provider procedures requiring assistance completed. jb4 jb4 19:23 19:20 Patient did not have IV access during this emergency room visit. jb4 jb4 08/31 16:51 16:50 Addendum: COVID-19 Result: Negative result given to RN to notify pt. iw iw
--- NOTE | 2020-08-28 19:05 | RAD REPORT ---
EXAM DESCRIPTION: Bhavin Single View08/28/2020 6:26 pm CLINICAL HISTORY: cough COMPARISON: August 17, 2020 FINDINGS: The lungs appear clear of acute infiltrate. The heart is normal size IMPRESSION: No acute abnormalities displayed
[2020-08-29 01:41] VITALS: BP 114/70; TEMP 98; O2SAT 98
== END 2020-08-28 19:19 | disposition home or self-care (01) ==
LOC: ER 16:36
DX: R06.00 Dyspnea, unspecified (principal); Z20.828 Contact with and (suspected) exposure to other viral communicable diseases; Z87.891 Personal history of nicotine dependence
CPT/HCPCS: 87070; 87081; 87804 ×2; 71045; 99284; U0002

== ENCOUNTER 2022-04-29 17:13 | Emergency (ER) | payer BC ==
[2022-04-29] MEDS ORDERED: METOCLOPRAMIDE 10 MG/2mL INJ ONE (18:33)
[2022-04-29] MEDS ORDERED: NA CHLORIDE 0.9% 500 ML ONE (18:33)
[2022-04-29] MEDS ORDERED: DIPHENHYDRAMINE 50 MG/ML VIAL ONE (18:33)
--- NOTE | 2022-04-29 20:04 | RAD REPORT ---
EXAM DESCRIPTION: CT - Head Brain Wo Cont - 04/29/2022 7:58 pm CLINICAL HISTORY: headache COMPARISON: No comparisons TECHNIQUE: All CT scans are performed using dose optimization technique as appropriate and may inclu de automated exposure control or mA/KV adjustment according to patient size. FINDINGS: No intracranial hemorrhage, hydrocephalus or extra-axial fluid collection.No areas of brai n edema or evidence of midline shift. The paranasal sinuses and mastoids are clear. The calvarium is intact. IMPRESSION: No acute intracranial abnormality.
--- NOTE | 2022-04-29 20:06 | RAD REPORT ---
EXAM DESCRIPTION: CT - Head angio - 04/29/2022 7:58 pm CLINICAL HISTORY: headache COMPARISON: Head Brain Wo Cont dated 04/29/2022 TECHNIQUE: CT angiography of the head was performed with MIPs. All CT scans are performed using dose optimization technique as appropriate and may include automated exposure control or mA/KV adjustment according to patient size. FINDINGS: Anterior circulation: No aneurysm or large vessel occlusion. No hemodynamically significant stenosis. No arteriovenous malf ormation identified. Posterior circulation: No aneurysm or large vessel occlusion. No hemodynamically significant stenosis. No arteriovenous malf ormation identified. IMPRESSION: No significant flow abnormality is detected. No aneurysm.
[2022-04-29] MEDS ORDERED: KETOROLAC 30 MG/ML INJ ONE (20:45)
[2022-04-29] MEDS ORDERED: dexAMETHasone 10 MG/ML VIAL ONE (20:45)
--- NOTE | 2022-04-29 21:32 | EDPHYS ---
Physician Documentation [facility] Name: Shola White Age: 26 yrs Sex: Male : 1995 Arrival Date: 04/29/2022 Time: 17:17 Bed 20 Private MD: ED Physician Jenifer Rucker HPI: 04/29 21:29 This 26 yrs old Male presents to ER via Ambulatory with complaints of Headache. jmm 21:29 The patient complains of pain to the right frontal area, right side of the back of jmm head, right temporal area, right side of forehead, right sabianist and right eye. Onset: The symptoms/episode began/occurred gradually, 1 day(s) ago. Associated signs and symptoms: Pertinent negatives: there are no associated signs or symptoms. Headache History: The patient has had previous headaches and this one is less severe than previous episodes. The symptoms are alleviated by nothing. the symptoms are aggravated by nothing. The patient has not experienced similar symptoms in the past. Historical: - Allergies: 17:27 No Known Allergies; tp1 - Home Meds: 17:27 Xanax Oral [Active]; tp1 - PMHx: 17:27 Anxiety; tp1 - Immunization history:: Client reports having NOT received the Covid vaccine. - Social history:: Smoking status: Reported history of juuling and/or vaping. ROS: 21:29 Constitutional: Negative for fever, chills, and weight loss, Cardiovascular: Negative jmm for chest pain, palpitations, and edema, Respiratory: Negative for shortness of breath, cough, wheezing, and pleuritic chest pain. 21:29 Neuro: Positive for headache. 21:29 All other systems are negative. Exam: 21:29 Constitutional: This is a well developed, well nourished patient who is awake, alert, jmm and in no acute distress. Head/Face: atraumatic. Eyes: EOMI, no conjunctival erythema appreciated ENT: Moist Mucus Membranes Neck: Trachea midline, Supple Chest/axilla: Normal chest wall appearance and motion. Cardiovascular: Regular rate and rhythm. No edema appreciated Respiratory: Normal respirations, no respiratory distress appreciated Abdomen/GI: Non distended Back: Normal ROM Skin: General appearance color normal MS/ Extremity: Moves all extremities, no obvious deformities appreciated, no edema noted to the lower extremities Neuro: Awake and alert Psych: Behavior is normal, Mood is normal, Patient is cooperative and pleasant Vital Signs: 17:21 BP 143 / 87; Pulse 76; Resp 16; Temp 98.5; Pulse Ox 96% on R/A; Weight 49.9 kg; Height tp1 5 ft. 6 in. (167.64 cm); Pain 10/10; 22:11 BP 134 / 88; Pulse 68; Resp 17; Pulse Ox 98% on R/A; lg3 17:21 Body Mass Index 17.75 (49.90 kg, 167.64 cm) tp1 MDM: 18:12 Patient medically screened. [facility] 21:29 Data reviewed: vital signs, nurses notes. Counseling: I had a detailed discussion with [facility] the patient and/or guardian regarding: the historical points, exam findings, and any diagnostic results supporting the discharge/admit diagnosis, radiology results, the need for outpatient follow up, to return to the emergency department if symptoms worsen or persist or if there are any questions or concerns that arise at home. ED course: Imaging studies are negative. Neck is supple. I do not suspect subarachnoid hemorrhage or meningitis. Patient vies follow-up with neurology for further evaluation otherwise given strict return precautions. Patient understood agrees plan of care.. 04/29 18:13 Order name: CT Head Angio; Complete Time: 20:07 [facility] 04/29 18:13 Order name: CT Head Brain wo Cont; Complete Time: 20:07 [facility] 04/29 18:13 Order name: Saline Lock; Complete Time: 18:40 [facility] Administered Medications: 18:37 Drug: diphenhydrAMINE 12.5 mg Route: IVP; Site: right forearm; tw2 20:43 Follow up: Response: No adverse reaction lg3 18:40 Drug: NS 0.9% 500 ml Route: IV; Rate: bolus; Site: right forearm; tw2 18:40 Drug: Reglan (metoCLOPramide) 20 mg Route: IVP; Site: right forearm; tw2 20:43 Follow up: Response: No adverse reaction lg3 20:42 Drug: Ketorolac 30 mg Route: IVP; Site: right wrist; lg3 20:43 Follow up: Response: No adverse reaction lg3 20:43 Drug: Decadron - Dexamethasone 10 mg Route: IVP; Site: left wrist; lg3 20:43 Follow up: Response: No adverse reaction lg3 Disposition: 04/30 07:56 STAFF ATTESTATION STATEMENT I was immediately available on-site in the Emergency sd2 Department for consultation in the care of the patient. Jenifer Rucker MD. Disposition Summary: 04/29/22 21:31 Discharge Ordered Location: Home [facility] Condition: Stable jmm Diagnosis - Headache [facility] Followup: [facility] - With: Renzo Covarrubias MD - When: 2 - 3 days - Reason: Recheck today's complaints, Continuance of care, Re-evaluation by your physician Discharge Instructions: - Discharge Summary Sheet jm - General Headache Without Cause [facility] Forms: - Medication Reconciliation Form [facility] - Thank You Letter [facility] - Antibiotic Education [facility] - Prescription Opioid Use [facility] Signatures: Dispatcher [employer] EDDemetrio Parsons PA PA jmm Wise, Tara RN RN tw2 Mayte Cervantes RN RN lg3 Angelica Cat RN RN tp1 Jenifer Rucker
--- NOTE | 2022-04-29 21:32 | ER ---
Nurse's Notes [facility] Name: Shola White Age: 26 yrs Sex: Male : 1995 Arrival Date: 04/29/2022 Time: 17:17 Bed 20 Private MD: Diagnosis: Headache Presentation: 04/29 17:21 Chief complaint: Patient states: consistent aching headache that is located on right tp1 side of head that radiates to right cheek. states it started around noon yesterday. Stated ibuprofen, Excedrin, nor sleep has helped relieve pain. rate pain 10/10. CO blurred vision, dizziness, nausea. states stopped smoking marijuana 10 days ago. Coronavirus screen: Vaccine status: Patient reports being unvaccinated. Ebola Screen: Patient denies exposure to infectious person. Patient denies travel to an Ebola-affected area in the 21 days before illness onset. Initial Sepsis Screen: Does the patient meet any 2 criteria? No. Patient's initial sepsis screen is negative. Does the patient have a suspected source of infection? No. Patient's initial sepsis screen is negative. Risk Assessment: Do you want to hurt yourself or someone else? Patient reports no desire to harm self or others. Onset of symptoms was April 28, 2022. 17:21 Method Of Arrival: Ambulatory tp1 17:21 Acuity: TEQUILA 3 tp1 17:27 Chief complaint:. Chief complaint:. tp1 Triage Assessment: 17:27 Headache History: Denies prior headaches. General: Appears in no apparent distress. tp1 uncomfortable, Behavior is calm, cooperative. Pain: Complains of pain in head Pain radiates to right cheek Pain currently is 10 out of 10 on a pain scale. Quality of pain is described as aching, Pain began 1 day ago. Also complains of nausea. Neuro: Level of Consciousness is awake, alert, obeys commands, Oriented to person, place, time, situation, Reports blurred vision dizziness. Historical: - Allergies: 17:27 No Known Allergies; tp1 - Home Meds: 17:27 Xanax Oral [Active]; tp1 - PMHx: 17:27 Anxiety; tp1 - Immunization history:: Client reports having NOT received the Covid vaccine. - Social history:: Smoking status: Reported history of juuling and/or vaping. Screenin:40 Abuse screen: Denies threats or abuse. Denies injuries from another. Nutritional lg3 screening: No deficits noted. Tuberculosis screening: No symptoms or risk factors identified. Fall Risk None identified. Assessment: 19:40 General: Appears in no apparent distress. uncomfortable, Behavior is calm, cooperative. lg3 Pain: Complains of pain in face and right cheek Pain currently is 10 out of 10 on a pain scale. Neuro: No deficits noted. Level of Consciousness is awake, alert, obeys commands, Oriented to person, place, time, situation. Cardiovascular: No deficits noted. Denies chest pain, shortness of breath, Capillary refill < 3 seconds Clubbing of nail beds is absent JVD is absent Patient's skin is warm and dry. Respiratory: No deficits noted. Airway is patent Trachea midline Respiratory effort is even, unlabored, Respiratory pattern is regular, symmetrical. GI: No deficits noted. No signs and/or symptoms were reported involving the gastrointestinal system. Abdomen is flat, non-distended. : No deficits noted. No signs and/or symptoms were reported regarding the genitourinary system. EENT: No deficits noted. No signs and/or symptoms were reported regarding the EENT system. Derm: No deficits noted. No signs and/or symptoms reported regarding the dermatologic system. Skin is intact, is healthy with good turgor, Skin is dry, Skin temperature is warm. Musculoskeletal: No deficits noted. No signs and/or symptoms reported regarding the musculoskeletal system. Circulation, motion, and sensation intact. Range of motion: intact in all extremities. 22:11 Reassessment: Patient appears in no apparent distress at this time. No changes from lg3 previously documented assessment. Patient and/or family updated on plan of care and expected duration. Pain level reassessed. Patient is alert, oriented x 3, equal unlabored respirations, skin warm/dry/pink. Vital Signs: 17:21 BP 143 / 87; Pulse 76; Resp 16; Temp 98.5; Pulse Ox 96% on R/A; Weight 49.9 kg; Height tp1 5 ft. 6 in. (167.64 cm); Pain 10/10; 22:11 BP 134 / 88; Pulse 68; Resp 17; Pulse Ox 98% on R/A; lg3 17:21 Body Mass Index 17.75 (49.90 kg, 167.64 cm) tp1 ED Course: 17:17 Patient arrived in ED. as 17:27 Triage completed. tp1 17:27 Arm band placed on. tp1 17:36 Demetrio Hull [facility] 17:36 Jenifer Rucker is Attending Physician. jmm 18:22 Lilly Arenas, RN is Primary Nurse. tw2 18:37 Inserted saline lock: 20 gauge in right forearm, using aseptic technique. tw2 19:40 Patient has correct armband on for positive identification. Bed in low position. Call lg3 light in reach. Side rails up X 1. Client placed on continuous cardiac and pulse oximetry monitoring. NIBP monitoring applied. Door closed. Noise minimized. Warm blanket given. 19:59 CT Head Brain wo Cont In Process Unspecified. EDMS 20:06 CT Head Angio In Process Unspecified. EDMS 21:31 Renzo Covarrubias MD is Referral Physician. m 22:12 No provider procedures requiring assistance completed. IV discontinued, intact, lg3 bleeding controlled, No redness/swelling at site. Pressure dressing applied. Administered Medications: 18:37 Drug: diphenhydrAMINE 12.5 mg Route: IVP; Site: right forearm; tw2 20:43 Follow up: Response: No adverse reaction lg3 18:40 Drug: NS 0.9% 500 ml Route: IV; Rate: bolus; Site: right forearm; tw2 18:40 Drug: Reglan (metoCLOPramide) 20 mg Route: IVP; Site: right forearm; tw2 20:43 Follow up: Response: No adverse reaction lg3 20:42 Drug: Ketorolac 30 mg Route: IVP; Site: right wrist; lg3 20:43 Follow up: Response: No adverse reaction lg3 20:43 Drug: Decadron - Dexamethasone 10 mg Route: IVP; Site: left wrist; lg3 20:43 Follow up: Response: No adverse reaction lg3 Medication: 22:12 VIS not applicable for this client. lg3 Outcome: 21:31 Discharge ordered by . jmm 22:12 Discharged to home ambulatory. lg3 22:12 Condition: stable 22:12 Discharge instructions given to patient, Instructed on discharge instructions, follow up and referral plans. Demonstrated understanding of instructions, follow-up care. 22:13 Patient left the ED. lg3 Signatures: Dispatcher [employer] EDMS Demetrio Hull PA PA jmm Martinez, Amelia as Lilly Arenas RN RN tw2 Mayte Cervantes RN RN lg3 Angelica Cat RN RN tp1 Corrections: (The following items were deleted from the chart) 17:30 17:21 Chief complaint: Patient states: consistent aching headache that is located on tp1 right side of head that radiates to right cheek. states it started around noon yesterday. Stated ibuprofen, Excedrin, nor sleep has helped relieve pain. rate pain 07/17. CO blurred vision, dizziness, nausea. tp1
[2022-04-29 23:04] VITALS: TEMP 98.5
[2022-04-29 23:05] VITALS: BP 134/88; O2SAT 98
== END 2022-04-29 22:13 | disposition home or self-care (01) ==
LOC: ER 17:13
DX: R51.9 Headache, unspecified (principal); F41.9 Anxiety disorder, unspecified
CPT/HCPCS: 70450; 70496; 99283; Q9967; J2765; J1200; J1100; J7040

== ENCOUNTER 2022-09-26 04:16 | Emergency (ER) | payer BC ==
--- OUTSIDE RECORDS SUMMARY | 2022-09-26 04:19 | XMS REPORT | Continuity of Care Document ---
:1995 Author Organization [facility] t Address [address] [place] [address] Care Team Providers Name Role Phone JAYANT CARSON Primary Care Physician Unavailable KAILA BRENNAN Attending Clinician Unavailable LAB90 Attending Clinician Unavailable Kinsey MADRIGAL Attending Clinician Unavailable Kinsey Piña Attending Clinician SANJIV ANNE Attending Clinician Unavailable Betsy Bagley Attending Clinician Payers Payer Name Policy Type Policy Number Effective Date Expiration Date [place] [address] [id number] 2022 00:00:00 [facility] - [id number] 2022 00:00:00 OUT OF STATE Problems Condition Condition Condition Status Onset Resolution Last Treating Co mments Source Name Details Category Date Date Treatment Clinician Date No known No known Disease Kelse y active active Seybold problems problems - Externa l Allergies, Adverse Reactions, Alerts Allergy Allergy Status Severity Reaction(s) Onset Inactive Treating Comm ents Source Name Type Date Date Clinician NO KNOWN Drug Active [facility] ALLERGIE Class [facility] [place] [facility] [place] Social History Social Habit Start Date Stop Date Quantity Comments Source History of tobacco Conchis Seybold - use External Exposure to 2022-04-22 2022-05-02 Not sure [facility] SARS-CoV-2 (event) 00:00:00 12:39:00 Medica l Branch [facility] [birth year] [facility] [place] [facility] Medical Branch Smoking Status Start Date Stop Date Source Tobacco smoking consumption [facility] Medical unknown Branch Smokes tobacco daily 2021-05-30 00:00:00 [facility] Seybold - External Medications Ordered Filled Start Stop Current Ordering Indication Dosage Frequency Signature Comments Components Source Medication Medication Date Date Medication? Clinician (SIG) Name Name Ceftriaxone 2021-10- No [id number] 1g [facility] Sodium 2-05 - Seybold (ROCEPHIN) 20:45: 20:45 - 1 g 00 :00 Externa l Ceftriaxone 2021-10- No [id number] 1g 1 g, [facility] Sodium 2-05 05 intramuscu Seybol d (ROCEPHIN) 20:45: 20:45 lar, ONCE, - 1 g 00 :00 1 dose, On Externa Mon l 09/11/22 at 1445
Fo r IM preparatio n, each 1 gram vial diluted with 2.1 mL 1% lidocaine to make 350 mg/mL. Inject desired dose IM.
Amoxicillin 2021-10 Yes [id number] 1{tbl} Take 1 [facility] -Pot 2-05 tablet by Seybold Clavulanate 00:00: mouth 2 - 875-125 MG 00 times Externa oral Tablet daily l ondansetron Yes [id number] 4mg Take 1 Univers 4 mg 7-26 tablet by ity of disintegrat 00:00: mouth [place] ing tablet 00 every 8 Medica l (eight) Branch hours as needed for Nausea and Vomiting (N/V). ibuprofen Yes [id number] 400mg Take 1 U nivers 400 mg 7-26 tablet by ity of tablet 00:00: mouth [place] 00 every 6 Medical (six) Branch hours as needed for Pain (scale 4-6). Lidocaine 2020-10 Yes [id number] Swish and [facility] HCl 0-01 07 spit every Seybold (Lidocaine 00:00: 4 hours Viscous 00 PRN pain HCl) 2 % mouth/throa t Solution Ondansetron 2020-10 Yes [id number] 4mg Q8H Take 1 [facility] (ZOFRAN) 4 0-01 tablet (4 Seyb old MG oral 00:00: mg total) TABLET 00 by mouth DISPERSIBLE every 8 hours as needed for nausea Ondansetron 2020-10 Yes [id number] 4mg Q.[id number] Take 1 [facility] (ZOFRAN) 4 0- [id number] tablet (4 Seybold MG oral 00:00: 3D mg total) - TABLET 00 by mouth Externa DISPERSIBLE every 8 l hours as needed for nausea Lidocaine 2020-10- No [id number] Swish and [facility] HCl 0-09-11 07 spit every Seybold (Lidocaine 00:00: 00:00 4 hours - Viscous 00 :00 PRN pain Externa HCl) 2 % l mouth/throa t Solution Immunizations Ordered Immunization Filled Immunization Date Status Commen ts Source Name Name Tdap- (Boostrix, 2021-05-30 Completed [facility] sal Adacel) 00:00:00 Tdap- (Boostrix, 2021-05-30 Completed [facility] callowayboradha Adacel) 00:00:00 - External Vital Signs Vital Name Observation Time Observation Value Comments Source Systolic blood 2022-09-11 19:38:00 96 mm[Hg] [facility] Kincaidold - pressure External Diastolic blood 2022-09-11 19:38:00 66 mm[Hg] Nellie brittney Codiold - pressure External Heart rate 2022-09-11 19:38:00 99 /min [facility] Chao jonelle - External Body temperature 2022-09-11 19:38:00 37.56 Radha Brandie calloway Seybold - External Respiratory rate 2022-09-11 19:38:00 14 /min Brandiechao calloway Seybold - External Body height 2022-09-11 19:38:00 170.2 cm [facility] Chao jonelle - External Body weight 2022-09-11 19:38:00 52.164 kg [facility] Chao jonelle - External BMI 2022-09-11 19:38:00 18.01 kg/m2 [facility] Chao jonelle - External Systolic blood 2022-05-02 15:39:00 134 mm[Hg] [facility] Diastolic blood 2022-05-02 15:39:00 88 mm[Hg[facility] 2022-05-02 15:39:00 66 /min [facility] Body temperature 2022-05-02 15:39:[address] [facility] Respiratory rate 2022-05-02 15:39:00 18 /min [facility] Body height 2022-05-02 15:39:00 167.6 cm [facility] Body weight 2022-05-02 15:39:00 49.442 kg [facility] BMI 2022-05-02 15:39:00 17.59 kg/m2 [facility] Oxygen saturation in 2022-05-02 15:39:00 98 /min [facility] blood by [facility] Pulse oximetry Branch Systolic blood 2021-07-08 21:27:00 124 mm[Hg] Conchis Seybold pressure Diastolic blood 2021-07-08 21:27:00 70 mm[Hg] Kelse y Seybold pressure Heart rate 2021-07-08 21:27:00 65 /min [facility] sal Body temperature 2021-07-08 21:27:00 37.17 Radha Brandie elli Seybold Respiratory rate 2021-07-08 21:27:00 16 /min Brandie ey Seybold Body height 2021-07-08 21:27:00 165.1 cm Conch[facility] callowayboradha Body weight 2021-07-08 21:27:00 55.792 kg Con[facility] callowaybold BMI 2021-07-08 21:27:00 20.47 kg/m2 Con[facility] callowayboradha Procedures Procedure Date / Time Performed Performing Clinician Sour e LS RAPID STREP 2022-09-11 20:14:46 Kaila Brennan - ASSAY-LAB TEST External COVID-19 (ID NOW 2022-05-02 16:17:00 Kinsey Madrigal [facility] RAPID TESTING) [facility] [place] Encounters Start End Encounter Admission Attending Care Care Encounter Source Date/Time Date/Time Type Type Clinicians Facility Department ID 2022-09-14 2022-09-14 Outpatient [facility] BRENNAN [id number] [facility] 00:00:00 00:00:00 KAILA melara 2022-09-13 2022-09-13 Outpatient CON[facility] BRENNAN [id number] [facility] 00:00:00 00:00:00 KAILA Seybol d 2022-09-11 2022-09-11 Outpatient LAB90 CON[facility] HO [id number] [facility] 15:05:00 15:05:00 Seybol d 2022-09-11 2022-09-11 Outpatient CONCHIS BRENNAN [id number] [facility] 13:45:00 13:45:00 KAILA Seybol d 2022-05-02 2022-05-02 Emergency X KAITLIN Kinsey [facility] ERT [id number] Univers 10:40:00 12:43:00 ity of [facility] 2022-05-02 2022-05-02 Emergency Kaitlin, K [facility] [id number] Univers 10:40:00 12:43:00 May SOLIZ [id number] i ty [facility] [id number] [facility] [id number] [address] 2021-11-17 2021-11-17 Outpatient CONCH[facility] ANNE [id number] [facility] 00:00:00 00:00:00 SANJIV Stuart ld 2021-07-08 2021-07-08 Office Trav Finley [id number] [facility] 16:25:35 16:55:35 Visit Betsybrittney [place]inas [id number] Se taylor [id number] 2021-07-08 2021-07-08 Outpatient CONCH[facility] BRENNAN [id number] [facility] 00:00:00 00:00:00 KAILA Seybol d 2021-05-30 2021-05-30 Outpatient LAB90 [facility] HO [id number] [facility] 12:15:00 12:15:00 Selucol saritha 2021-05-30 2021-05-30 Outpatient [facility] BRENNAN [id number] [facility] 11:30:00 11:30:00 KAILA Kincaidol d Results Test Description Test Time Test Comments Results Result Comments Source LS RAPID STREP ASSAY-LAB TEST 2022-09-11 20:31:37 Test Item Value Reference Range Interpretation Comme nts STREP GP A AG, IA (test code = Negative Negative Infection due to Strep A cannot 85830-4) be ruled-out be cause the antigen present in the sample may be below th e detection limit of the te st. Specimen has been sent for c onfirmation of negative. Lab Interpretation (test code = Normal [id number]) [facility] Hartmann - Pedro
[2022-09-26 05:14] LABS: Absolute Lymphocytes (CBC) 2.6 K/uL (0.7-4.9); Hematocrit 44.6 % (39.6-49.0); Lymphocytes % 34.5 % (15.3-44.8); MCV 89.3 fL (80-100); MPV 8.1 fL (7.6-11.3); RBC Red Blood Cell Count 4.99 M/uL (4.33-5.43)
[2022-09-26 05:28] LABS: Potassium 3.6 mmol/L (3.5-5.1)
--- NOTE | 2022-09-26 06:21 | ER ---
Nurse's Notes [facility] Name: Shola White Age: 27 yrs Sex: Male : 1995 Arrival Date: 09/26/2022 Time: 04:18 Bed 19 Private MD: Diagnosis: Dysphagia, unspecified Presentation: 09/26 04:38 Chief complaint: Patient states: C/o sore throat X 2-3 weeks, states "I have been ll3 having a hard time swallowing, I've been on a soft food only diet and have been losing weight", states pain is 7/10. Coronavirus screen: Vaccine status: Patient reports being unvaccinated. At this time, the client does not indicate any symptoms associated with coronavirus-19. Ebola Screen: No symptoms or risks identified at this time. Initial Sepsis Screen: Does the patient meet any 2 criteria? No. Patient's initial sepsis screen is negative. Does the patient have a suspected source of infection? No. Patient's initial sepsis screen is negative. Risk Assessment: Do you want to hurt yourself or someone else? Patient reports no desire to harm self or others. Onset of symptoms is unknown. 04:38 Method Of Arrival: Ambulatory ll3 04:38 Acuity: TEQUILA 3 ll3 Triage Assessment: 04:44 General:. Pain: Denies pain. jj7 Historical: - Allergies: 04:42 No Known Allergies; ll3 - PMHx: 04:42 Anxiety; Meckel's Diverticulum; ll3 - PSHx: 04:42 Appendectomy; ll3 - Immunization history:: Client reports having NOT received the Covid vaccine. - Social history:: Smoking status: Patient reports the use of cigarette tobacco products, denies chronic smoking, but will smoke occasionally. - Family history:: not pertinent. - Hospitalizations: : No recent hospitalization is reported. Screenin:44 [facility] ED Fall Risk Assessment (Adult) History of falling in the last 3 months, jj7 including since admission No falls in past 3 months (0 pts) Confusion or Disorientation No (0 pts) Intoxicated or Sedated No (0 pts) Impaired Gait No (0 pts) Mobility Assist Device Used No (0 pt) Altered Elimination No (0 pt) Score/Fall Risk Level 0 - 2 = Low Risk. Abuse screen: Denies threats or abuse. Nutritional screening: Difficulty chewing/swallowing? Yes LOST ABOUT 5LBS STATES HE CAN'T EAT VERY MUCH. Tuberculosis screening: No symptoms or risk factors identified. Fall Risk No fall in past 12 months (0 pts). Assessment: 04:44 General: Appears in no apparent distress. uncomfortable, slender, Behavior is calm, jj7 cooperative, appropriate for age. Respiratory: No deficits noted. EENT: Reports difficulty swallowing since FOR ABOUT 1 MONTH. 04:44 Respiratory: Airway is patent Respiratory effort is even, unlabored. jj7 06:44 EENT:. jj7 Vital Signs: 04:38 BP 128 / 84; Pulse 89; Resp 17; Temp 97.7(O); Pulse Ox 99% on R/A; Weight 50.35 kg (R); ll3 Height 5 ft. 7 in. (170.18 cm) (R); Pain 7/10; 05:29 BP 111 / 76; Pulse 73; Resp 20; Pulse Ox 98% ; jj7 06:38 BP 116 / 74; Pulse 77; Resp 17; Pulse Ox 99% ; jj7 04:38 Body Mass Index 17.38 (50.35 kg, 170.18 cm) ll3 ED Course: 04:18 Patient arrived in ED. bp1 04:18 Werner Mccoy MD is Attending Physician. rn 04:32 Tito Diaz, ELIZA is Primary Nurse. jj7 04:42 Triage completed. ll3 04:42 Arm band placed on Patient placed in an exam room, on a stretcher, on pulse oximetry. ll3 04:44 Patient has correct armband on for positive identification. Bed in low position. Call jj7 light in reach. Adult w/ patient. 04:54 Inserted saline lock: 20 gauge in right antecubital area, using aseptic technique. jj7 Blood collected. 04:59 Basic Metabolic Panel Sent. jj7 04:59 CBC with Diff Sent. jj7 05:49 CT Soft Tissue Neck W/contr In Process Unspecified. EDMS 06:20 Elie Wynne MD is Referral Physician. rn 06:38 No provider procedures requiring assistance completed. IV discontinued, intact, jj7 bleeding controlled, No redness/swelling at site. Administered Medications: No medications were administered Medication: 04:44 VIS not applicable for this client. jj7 Outcome: 06:21 Discharge ordered by . rn 06:38 Discharged to home ambulatory, with significant other. jj7 06:38 Condition: stable 06:38 Discharge instructions given to patient, significant other, Instructed on discharge instructions, follow up and referral plans. medication usage, Demonstrated understanding of instructions, follow-up care, medications, Prescriptions given X 1. 06:47 Patient left the ED. jj7 Signatures: Dispatcher [employer] EDMS Werner Mccoy MD MD rn Paniauga, Brittany bp1 Loubet, Lynsea RN RN ll3 Tito Diaz RN RN jj7
--- NOTE | 2022-09-26 06:21 | EDPHYS ---
Physician Documentation [facility] Name: Shola White Age: 27 yrs Sex: Male : 1995 Arrival Date: 09/26/2022 Time: 04:18 Bed 19 Private MD: ED Physician Werner Mccoy HPI: 09/26 04:57 This 27 yrs old Male presents to ER via Ambulatory with complaints of sore throat, rn difficulty swallowing. 04:57 The patient presents with dysphagia, of solids. The patient describes throat pain as rn raw. Onset: The symptoms/episode began/occurred 3 week(s) ago. Severity of symptoms: At their worst the symptoms were moderate, in the emergency department the symptoms are unchanged. Modifying factors: The symptoms are alleviated by nothing, the symptoms are aggravated by swallowing. Associated signs and symptoms: Pertinent negatives chest pain, fever, shortness of breath. The patient has not experienced similar symptoms in the past. The patient has been recently seen by a physician:. Pt reports difficulty swallowing solids for 2-3 weeks, seen by ENT recently without clear diagnosis, swallow study ordered but not done. No fever. Pt feels subjective swelling. + smoker. No hx of personal or family head and neck cancer. NO direct trauma to neck.. Historical: - Allergies: 04:42 No Known Allergies; ll3 - PMHx: 04:42 Anxiety; Meckel's Diverticulum; ll3 - PSHx: 04:42 Appendectomy; ll3 - Immunization history:: Client reports having NOT received the Covid vaccine. - Social history:: Smoking status: Patient reports the use of cigarette tobacco products, denies chronic smoking, but will smoke occasionally. - Family history:: not pertinent. - Hospitalizations: : No recent hospitalization is reported. ROS: 04:57 Constitutional: Negative for fever, chills, and weight loss, Eyes: Negative for injury, rn pain, redness, and discharge, ENT: + sore throat and dysphagia Neck: Negative for injury Cardiovascular: Negative for chest pain, palpitations, and edema, Respiratory: Negative for cough, wheezing, and pleuritic chest pain, Abdomen/GI: Negative for abdominal pain, nausea, vomiting, diarrhea, and constipation. Exam: 04:57 Constitutional: Thin male, no acute distress Head/Face: Normocephalic, atraumatic. rn Eyes: Periorbital areas with no swelling, redness, or edema. ENT: NO stridor, no pharyngeal erythema or swelling Neck: Non-tender bilateral cervical LAD Cardiovascular: Regular rate and rhythm. No pulse deficits. Respiratory: No increased work of breathing, no retractions or nasal flaring. Abdomen/GI: Soft, non-tender Skin: Warm, dry MS/ Extremity: Pulses equal, no cyanosis. Neuro: Awake and alert, GCS 15 Vital Signs: 04:38 BP 128 / 84; Pulse 89; Resp 17; Temp 97.7(O); Pulse Ox 99% on R/A; Weight 50.35 kg (R); ll3 Height 5 ft. 7 in. (170.18 cm) (R); Pain 7/10; 05:29 BP 111 / 76; Pulse 73; Resp 20; Pulse Ox 98% ; jj7 06:38 BP 116 / 74; Pulse 77; Resp 17; Pulse Ox 99% ; jj7 04:38 Body Mass Index 17.38 (50.35 kg, 170.18 cm) ll3 MDM: 04:18 Patient medically screened. rn 06:19 Differential diagnosis: laryngitis, lymphoma, retropharyngeal abcess malignancy, rn sequela of acid reflux/GERD, esophagitis. Data reviewed: vital signs, nurses notes, lab test result(s), radiologic studies, CT scan, and as a result, I will discharge patient. Counseling: I had a detailed discussion with the patient and/or guardian regarding: the historical points, exam findings, and any diagnostic results supporting the discharge/admit diagnosis, lab results, radiology results, the need for outpatient follow up, to return to the emergency department if symptoms worsen or persist or if there are any questions or concerns that arise at home. Response to treatment: There is no appreciated change of the patient's symptoms at this time, and as a result, I will discharge patient. Special discussion: I discussed with the patient/guardian in detail that at this point there is no indication for admission to the hospital. It is understood, however, that if the symptoms persist or worsen the patient needs to return immediately for re-evaluation. Based on the history and exam findings, there is no indication for further emergent testing or inpatient evaluation. I discussed with the patient/guardian the need to see the business support associate for further evaluation of the symptoms. 09/26 04:44 Order name: CBC with Diff; Complete Time: 05:22 rn 09/26 04:44 Order name: Basic Metabolic Panel; Complete Time: 05:29 rn 09/26 04:44 Order name: IV Start; Complete Time: 04:59 rn 09/26 04:44 Order name: CT Soft Tissue Neck W/contr rn Administered Medications: No medications were administered Disposition Summary: 09/26/22 06:21 Discharge Ordered Location: Home rn Problem: an ongoing problem rn Symptoms: are unchanged rn Condition: Stable rn Diagnosis - Dysphagia, unspecified rn Followup: rn - With: Elie Wynne MD - When: As needed - Reason: Further diagnostic work-up, Recheck today's complaints, Re-evaluation by your physician Discharge Instructions: - Discharge Summary Sheet rn - Dysphagia rn Forms: - Medication Reconciliation Form rn - Thank You Letter rn - Antibiotic fingernail sculpturer - Prescription Opioid Use rn Prescriptions: - Protonix 40 mg Oral Tablet - take 1 tablet by ORAL route once daily; 30 tablet; Refills: 0, Product rn Selection Permitted Signatures: Dispatcher [employer] Werner Skelton MD MD rn Loubet, Lynsea, RN RN ll3
[2022-09-26 06:57] VITALS: TEMP 97.7
[2022-09-26 07:08] VITALS: BP 116/74; O2SAT 99
--- NOTE | 2022-09-26 10:42 | RAD REPORT ---
EXAM DESCRIPTION: CT - Soft Tissue Neck W/Contr - 09/26/2022 6:48 am CLINICAL HISTORY: 27 years Male Dysphagia, subjective swelling. TECHNIQUE: Axial CT imaging of the soft tissues of the neck were performed following the administrat ion of intravenous contrast. followed by sagittal and coronal reconstructed images. The CT study is p erformed according to ALARA (as low as reasonably achievable) or ALARA/IMAGE GENTLY, with automatic a djustment of mA and/or kV according to patient size. Performed on: 09/26/2022 at 5:40 AM COMPARISON: No prior studies were available for comparison.. FINDINGS: The visualized portions of the brain and orbits are normal. The oral cavity, oropharynx and nasopharynx are normal. Some portions of the oral cavity and orophary nx are obscured by streak artifact related to the patient's dental hardware. The parapharyngeal fa t planes are preserved. The hypopharynx is unremarkable. The epiglottis and aryepiglottic folds are normal. The vallecula and pyriform sinuses are grossly nor mal. The preepiglottic fat is preserved. The thyroid, cricoid and arytenoid cartilages are normal. The region of the false and true vocal cords is normal as is the anterior commissure. The parotid and submandibular glands are grossly within normal limits. No intrinsic mass lesions are seen. . The carotid sheaths are normal bilaterally. The paranasal sinuses and mastoid air cells are clear. No definite pathologically enlarged lymph nodes are identified The thyroid gland is normal in size and configuration. The thoracic inlet is normal. The superior mediastinum and lung apices are normal. No acute osseous abnormalities are identified. No focal soft tissue abnormalities are seen. IMPRESSION: Normal CT scan of the soft tissues of the neck. No acute abnormalities are identified. T here are no findings on this examination to explain the patient's reported clinical symptoms. Electronically signed by: Kateryna Cruz DO 09/26/2022 6:14 AM [facility] Due to temporary technical issues with the PACS/Fluency reporting system, reports are being signed by the in house radiologists without review as a courtesy to insure prompt reporting. The interpreting radiologist is fully responsible for the content of the report.
== END 2022-09-26 06:47 | disposition home or self-care (01) ==
LOC: ER 04:16
DX: R13.10 Dysphagia, unspecified (principal); F17.210 Nicotine dependence, cigarettes, uncomplicated
CPT/HCPCS: 85025; 80048; 36415; 70491; Q9967; 99284